=== PATIENT | female | born 1980 | race Caucasian/White ===

== ENCOUNTER 2020-11-19 16:22 | Emergency (ER) | payer MEDICARE, MEDICAID, SELFPAY ==
[2020-11-19 16:30] VITALS: BP 149/96; PULSE 57; RESP 16; TEMP 37.2; O2SAT 100
--- NOTE | 2020-11-19 17:11 | ED.FEMALEGU ---
HPI - Female Genitourinary General Chief complaint: Urogenital-Female Stated complaint: PAINFUL URINATION/LOW BACK PAIN Source: patient and RN notes reviewed Limitations: no limitations History of Present Illness HPI Narrative: The patient, who has history of high functioning autism and on several meds, presents with back pain. Patient and guardian states she lives nearly independently, and has about half week history of urinary frequency, urgency and dysuria. This is associated with mild right-sided back pain, that radiates slightly to her right thigh. No fever, hematuria, abdominal pain, V/D, numbness/weakness, radiation below the knee, injury. Symptoms are mild, worse with micturition or activity. Related Data Home Medications Medication Instructions Recorded Confirmed metoprolol succinate 100 mg 50 mg PO BID tablet 09/19/19 11/19/20 tablet,extended release 24 hr metoprolol succinate 25 mg 25 mg PO BID 09/19/19 11/19/20 tablet,extended release 24 hr hydralazine 25 mg PO BID 11/19/20 11/19/20 Allergies Allergy/AdvReac Type Severity Reaction Status Date / Time No Known Allergies Allergy Unverified 11/19/20 16:28 Review of Systems Review of Systems: Narrative: General/Constitutional: No weight loss- has wt gain,fever Eyes: N0: Redness,discharge Ears/Nose/Throat: No: Epistaxis,ear discharge Respiratory: Denies: Hemoptysis Gastrointestinal: No Vomiting, Bleeding-rectal Skin: No Lumps, eruption ; COMMENTS has painful first metatarsal on flexor aspect. Neurologic: No Focal Weakness,Sz Hematologic: Denies: Petechiae/Purpura Psychiatric: No: Suicida ideationl All Other Systems: Reviewed and Negative PMFSH Past Medical History Medical History (Updated 11/19/20 @ 17:16 by Gus Aguero MD) Anemia of chronic disease Autism Congenital cystic kidney disease Essential (primary) hypertension Hyperparathyroidism due to renal insufficiency Rhinosinusitis Stage 2 chronic kidney disease Family History Family History (Updated 04/26/17 @ 15:37 by DOCTOR UNKNOWN) Other Family history of congestive heart failure Social History Social History Smoking status: Never smoker Alcohol intake: never Comments At time of signature, agree with nursing past medical, surgical, social and family history. There is no relevant family history pertinent to the presenting complaint Exam Narrative: Exam Narrative: General Appearance: Well appearing, Well nourished EYE: PERRLA, Conjunctiva clear Ears: External ear normal Nose: Normal nose Mouth/Throat: Normal appearing, Normal lips Neck: Supple Respiratory: Airway patent Abdomen: Soft, NT, no CVAT Musculoskeletal: Normal strength (no footdrop, 5/5 : EH L-FHL, gastroc-AT, no saddle weakness) Spine/Back: Paraspinal muscle tender (with mild decreased range of motion; rightt posterior superior iliac crest) Skin: Normal color Neurological: A&O x3, CN II-XII intact, Normal reflexes (symmetric, 2+ KJ, trace AJ) Psychiatric: Normal mood Course Vital Signs Vital signs: Vital Signs Temperature 99.0 F 11/19/20 16:30 Pulse Rate 57 L 11/19/20 16:30 Respiratory Rate 16 11/19/20 16:30 Blood Pressure 149/96 H 11/19/20 16:30 Pulse Oximetry 100 11/19/20 16:30 Temperature 99.0 F 11/19/20 16:30 Pulse Rate 57 L 11/19/20 16:30 Respiratory Rate 16 11/19/20 16:30 Blood Pressure 149/96 H 11/19/20 16:30 Pulse Oximetry 100 11/19/20 16:30 MDM - Female Genitourinary Lab Data Labs: Urine Glucose Negative Reference Range: Negative Urine Bilirubin Negative Reference Range: Negative Urine Ketone Negative Reference Range: Negative Urine Specific [place] 1.025 Reference Range:1.0
== END 2020-11-19 17:30 | disposition home or self-care (01) ==
PROVIDERS: Emergency Provider Emergency Medicine; PCP Nurse Practitioner Family
DX: R30.0 Dysuria (principal); M54.5 Low back pain; F84.0 Autistic disorder; Q61.9 Cystic kidney disease, unspecified; I12.9 Hypertensive chronic kidney disease with stage 1 through stage 4 chronic kidney disease, or unspecified chronic kidney disease; N18.2 Chronic kidney disease, stage 2 (mild); N25.81 Secondary hyperparathyroidism of renal origin
CPT/HCPCS: 81003; 87086; 99213; G0463

== ENCOUNTER 2021-06-07 15:51 | Outpatient (CLI) | payer MEDICARE, MEDICAID, SELFPAY ==
[2021-06-07 16:31] LABS: Basophils Absolute Auto 0.1 K/mm3 (0.0-0.1); Eosinophils Absolute Auto 0.2 K/mm3 (0-0.3); Eosinophils Percent Auto 2.3 % (0-4.4); Hematocrit 42.5 % (37.0-47.0); Hemoglobin 13.5 g/dL (12.0-15.0); Immature Granulocyte Absolute 0.03 K/mm3 (0.00-0.031); Immature Granulocyte Percent A 0.4 % (0-0.5); Lymphocytes Absolute Auto 1.88 K/mm3 (0.9-3.2); Lymphocytes Percent Auto 26.8 % (18.3-44.2); Mean Corpuscular HGB Conc 31.8 g/dl (32-36); Mean Corpuscular Hemoglobin 29.7 pg (26-34); Mean Corpuscular Volume 93.4 fl (80-100); Mean Platelet Volume 10.3 fl (7.4-10.4); Monocytes Absolute Auto 0.7 K/mm3 (0.1-0.6); Neutrophils Absolute Auto 4.2 K/mm3 (1.3-6.7); Neutrophils Percent Auto 59.5 % (45.5-73.1); Platelet Count Result 233 k/mm3 (150-375); Red Blood Count 4.55 M/mm3 (4.2-5.4); Red Cell Distribution Width 12.2 % (11.5-14.5)
[2021-06-07 16:44] LABS: Add Urine Microscopic? YES; Appearance Urine Cloudy (Clear); Bacteria Urine Trace /hpf; Bilirubin Urine Negative (Negative); Blood Urine Negative (Negative); Color Urine Yellow (Yellow); Glucose Urine UA Negative (Negative); Ketones Urine Negative (Negative); Leukocyte Esterase Ur Trace LEU/UL (Negative); Mucus Urine Rare /lpf; Nitrate Urine Negative (Negative); Protein Urine Negative (Negative); RBC Urine 0-2 /hpf (0-2); Specific Grav Ur 1.011 (1.001-1.035); Squamous Epithelial Cell Urine Many /hpf (Few); Urobilinogen Urine Negative mg/dL (<2.0); WBC Urine 0-3 /hpf
[2021-06-07 18:04] LABS: Creatinine Urine 84.7 mg/dL; Total Protein Urine Random 12 mg/dL; Ur Ttl Prot Creatinine Ratio 0.14 mg/mg (0-0.20)
[2021-06-07 19:42] LABS: Alanine Aminotransferase 23 U/L (4-35); Albumin Level 4.2 g/dL (3.5-5.1); Alkaline Phosphatase 68 U/L (38-126); Anion Gap 8 mmol/L (8-16); Aspartate Amino Transferase 29 U/L (14-36); Bilirubin,Total 0.4 mg/dL (0.2-1.3); Blood Urea Nitrogen 18 mg/dL (7-17); Calcium 9.5 mg/dL (8.4-10.2); Carbon Dioxide 27 mmol/L (22-30); Chloride 104 mmol/L (98-107); Estimated Glomerular Filt Rate 56; Glucose 113 mg/dL (65-110); Phosphorus 3.8 mg/dL (2.5-4.5); Potassium 4.3 mmol/L (3.4-5.0); Sodium 139 mmol/L (137-145); Uric Acid 5.9 mg/dL (2.5-7.5)
[2021-06-07 19:53] LABS: Parathyroid Intact 70.3 pg/mL (7.5-53.5)
== END 2021-06-07 15:52 | disposition home or self-care (01) ==
LOC: ANHLAB 15:54
PROVIDERS: PCP Nurse Practitioner Family; Visit Provider Internal Medicine Nephrology
DX: I12.9 Hypertensive chronic kidney disease with stage 1 through stage 4 chronic kidney disease, or unspecified chronic kidney disease (principal); N18.2 Chronic kidney disease, stage 2 (mild); Q61.9 Cystic kidney disease, unspecified; N25.81 Secondary hyperparathyroidism of renal origin; D63.8 Anemia in other chronic diseases classified elsewhere; F84.0 Autistic disorder; F41.9 Anxiety disorder, unspecified; L70.9 Acne, unspecified; R51.9 Headache, unspecified
CPT/HCPCS: 36415; 80053; 81001; 82570; 83970; 84100; 84156; 84550; 85025

== ENCOUNTER 2021-12-16 07:28 | Outpatient (CLI) | payer MEDICARE, MEDICAID, SELFPAY ==
[2021-12-16 08:03] LABS: Basophils Absolute Auto 0.1 K/mm3 (0.0-0.1); Basophils Percent Auto 0.9 % (0.2-1.2); Eosinophils Absolute Auto 0.2 K/mm3 (0-0.3); Hematocrit 42.8 % (37.0-47.0); Hemoglobin 13.5 g/dL (12.0-15.0); Immature Granulocyte Absolute 0.04 K/mm3 (0.00-0.031); Immature Granulocyte Percent A 0.6 % (0-0.5); Lymphocytes Absolute Auto 1.41 K/mm3 (0.9-3.2); Lymphocytes Percent Auto 22.1 % (18.3-44.2); Mean Corpuscular HGB Conc 31.5 g/dl (32-36); Mean Corpuscular Hemoglobin 29.5 pg (26-34); Mean Corpuscular Volume 93.7 fl (80-100); Mean Platelet Volume 10.1 fl (7.4-10.4); Monocytes Absolute Auto 0.6 K/mm3 (0.1-0.6); Neutrophils Percent Auto 63.4 % (45.5-73.1); Platelet Count Result 231 k/mm3 (150-375); Red Blood Count 4.57 M/mm3 (4.2-5.4); Red Cell Distribution Width 12.3 % (11.5-14.5); White Blood Count 6.4 K/mm3 (4.5-10.0)
[2021-12-16 08:15] LABS: Hemoglobin A1C 5.1 % (<5.7)
[2021-12-16 08:33] LABS: Alanine Aminotransferase 22 U/L (4-35); Albumin Level 4.1 g/dL (3.5-5.1); Alkaline Phosphatase 73 U/L (38-126); Anion Gap 3 mmol/L (8-16); Aspartate Amino Transferase 30 U/L (14-36); Bilirubin,Total 0.7 mg/dL (0.2-1.3); Blood Urea Nitrogen 26 mg/dL (7-17); Carbon Dioxide 23 mmol/L (22-30); Chloride 107 mmol/L (98-107); Cholesterol 151 mg/dL (0-200); Estimated Glomerular Filt Rate 50; Glucose 95 mg/dL (65-110); HDL Direct 43 mg/dL; Phosphorus 3.9 mg/dL (2.5-4.5); Potassium 5.1 mmol/L (3.4-5.0); Sodium 133 mmol/L (137-145); Triglycerides 62 mg/dL (<150); Uric Acid 5.9 mg/dL (2.5-7.5)
[2021-12-16 08:44] LABS: LDL Cholesterol Direct 69 mg/dL
[2021-12-16 10:10] LABS: Vitamin D 25 Hydroxy 59.4 ng/mL
== END 2021-12-16 07:29 | disposition home or self-care (01) ==
PROVIDERS: PCP Nurse Practitioner Family; Visit Provider Internal Medicine Nephrology
DX: Q61.9 Cystic kidney disease, unspecified (principal); N18.2 Chronic kidney disease, stage 2 (mild); I10 Essential (primary) hypertension; N25.81 Secondary hyperparathyroidism of renal origin; D63.8 Anemia in other chronic diseases classified elsewhere; L70.9 Acne, unspecified; R51.0 Headache with orthostatic component, not elsewhere classified; F84.0 Autistic disorder
CPT/HCPCS: 36415; 80053; 80061; 82306; 83036; 83970; 84100; 84550; 85025

== ENCOUNTER 2022-11-30 09:31 | Outpatient (CLI) | payer MEDICARE, MEDICAID, SELFPAY ==
[2022-11-30 10:15] LABS: Total Protein Urine Random 13 mg/dL
[2022-11-30 10:16] LABS: Appearance Urine Clear (Clear); Bacteria Urine None Seen /hpf; Bilirubin Urine Negative (Negative); Blood Urine 1+ (Negative); Color Urine Yellow (Yellow); Glucose Urine UA Negative (Negative); Ketones Urine Negative (Negative); Leukocyte Esterase Ur 1+ LEU/UL (NEGATIVE); Nitrate Urine Negative (Negative); Non Pathogenic Casts 0-2; Protein Urine Negative (Negative); Specific Grav Ur 1.006 (1.001-1.035); Squamous Epithelial Cell Urine Occasional /hpf (Few); Urobilinogen Urine 0.2 mg/dL (<2.0); pH Urine 5.5 (5.0-9.0)
[2022-11-30 10:28] LABS: Add Urine Microscopic? YES
[2022-11-30 10:48] LABS: Basophils Absolute Auto 0.1 K/mm3 (0.0-0.1); Basophils Percent Auto 0.9 % (0.2-1.2); Eosinophils Absolute Auto 0.2 K/mm3 (0-0.3); Eosinophils Percent Auto 2.4 % (0-4.4); Hematocrit 42.3 % (37.0-47.0); Hemoglobin 13.4 g/dL (12.0-15.0); Immature Granulocyte Absolute 0.05 K/mm3 (0.00-0.031); Immature Granulocyte Percent A 0.8 % (0-0.5); Lymphocytes Absolute Auto 1.39 K/mm3 (0.9-3.2); Mean Corpuscular HGB Conc 31.7 g/dl (32-36); Mean Corpuscular Hemoglobin 29.9 pg (26-34); Mean Corpuscular Volume 94.4 fl (80-100); Mean Platelet Volume 10.6 fl (7.4-10.4); Monocytes Absolute Auto 0.6 K/mm3 (0.1-0.6); Monocytes Percent Auto 9.2 % (2.6-8.5); Neutrophils Absolute Auto 4.1 K/mm3 (1.3-6.7); Neutrophils Percent Auto 64.7 % (45.5-73.1); Platelet Count Result 205 k/mm3 (150-375); Red Blood Count 4.48 M/mm3 (4.2-5.4); Red Cell Distribution Width 12.7 % (11.5-14.5); White Blood Count 6.3 K/mm3 (4.5-10.0)
[2022-11-30 10:57] LABS: Alanine Aminotransferase 23 U/L (6-35); Albumin Level 4.2 g/dL (3.5-5.1); Alkaline Phosphatase 71 U/L (38-126); Anion Gap 4 mmol/L (8-16); Aspartate Amino Transferase 25 U/L (14-36); Bilirubin,Total 0.6 mg/dL (0.2-1.3); Blood Urea Nitrogen 16 mg/dL (7-17); Calcium 8.9 mg/dL (8.4-10.2); Carbon Dioxide 26 mmol/L (22-30); Chloride 101 mmol/L (98-107); Estimated Glomerular Filt Rate 55; Glucose 93 mg/dL (65-110); Potassium 4.7 mmol/L (3.4-5.0); Sodium 131 mmol/L (137-145)
[2022-11-30 11:37] LABS: Creatinine Urine 49.9 mg/dL; Ur Ttl Prot Creatinine Ratio 0.26 mg/mg (0-0.20)
== END 2022-11-30 09:32 | disposition home or self-care (01) ==
LOC: ANHLAB 09:37
PROVIDERS: PCP Nurse Practitioner Family; Visit Provider Internal Medicine Nephrology
DX: N18.2 Chronic kidney disease, stage 2 (mild) (principal); D63.1 Anemia in chronic kidney disease
CPT/HCPCS: 36415; 80053; 81001; 82570; 84156; 85025

== ENCOUNTER 2023-05-24 17:13 | Outpatient (NON) | payer MEDICARE, MEDICAID, SELFPAY | END 2023-05-24 17:14 | disposition home or self-care (01) | LOC: ANHLAB 17:14 | PROVIDERS: PCP Nurse Practitioner Family; Visit Provider Nurse Practitioner Family | DX: R30.0 Dysuria (principal) | CPT/HCPCS: 87086; 87088 ==

== ENCOUNTER 2023-06-27 15:18 | Emergency (ER) | payer MEDICARE, MEDICAID, SELFPAY ==
--- NOTE | ~2023-06-27 | XR_ITS ---
EXAMINATION: XR chest 2V DATE: 06/27/2023 17:58 INDICATION: Pulmonary status TECHNIQUE: PA and lateral views of the chest are obtained. COMPARISON: None available FINDINGS: The lungs are free of acute opacities. No pleural effusion or pneumothorax. The cardiomedia stinal silhouette is normal. There is mild thoracic spondylosis. IMPRESSION: 1. No acute cardiopulmonary abnormality. Reviewed, dictated and finalized at location F.
--- NOTE | ~2023-06-27 | CT_ITS ---
EXAMINATION: CT brain wo con INDICATION: Headache COMPARISON: None TECHNIQUE: Standard unenhanced head CT. The dose-length product (DLP) was 605.33 mGy-cm. The mA was a djusted according to patient size. Iterative reconstruction technique was employed. FINDINGS: No intracranial hemorrhage, acute infarction, or abnormal mass lesion. The ventricles are n ormal. No abnormal mass effect or midline shift. The lucas-white matter differentiation is normal. The basal cisterns are patent. There is dense calcification of the choroid plexus. The orbits are normal . The paranasal sinuses, mastoids and calvarium are normal. IMPRESSION: 1. No acute intracranial abnormality. Reviewed, dictated and finalized at location F.
[2023-06-27 15:25] VITALS: BP 186/103; PULSE 67; RESP 16; TEMP 36.4; O2SAT 98
[2023-06-27 17:03] VITALS: PULSE 66; RESP 22; O2SAT 99
--- NOTE | 2023-06-27 17:38 | ECG_ITS ---
Measurements Intervals [place] Rate: 54 P: 14 AL: 156 QRS: 2 QRSD: 102 T: 25 QT: 411 QTc: 392 Interpretive Statements SINUS BRADYCARDIA VOLTAGE CRITERIA FOR LVH [MEETS CRITERIA IN ONE OF: R(aVL), S(V1), R(V5), R(V5/V6)+S(V1)] ABNORMAL ECG NO PREVIOUS ECG AVAILABLE FOR COMPARISON Electronically Signed On 06-28-2023 10:26:55 CDT by Gus Leary M.D.
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
[2023-06-27] MEDS: ALPRAZolam (*CRX) 0.5 MG TABLET PO (18:09)
[2023-06-27] MEDS: SODIUM CHLORIDE 0.9% IV 1,000 ML 999 ML IV CONT (18:37)
[2023-06-27 18:42] LABS: Basophils Absolute Auto 0.1 K/mm3 (0.0-0.1); Basophils Percent Auto 0.6 % (0.2-1.2); Eosinophils Absolute Auto 0.1 K/mm3 (0-0.3); Eosinophils Percent Auto 1.2 % (0-4.4); Hematocrit 42.9 % (37.0-47.0); Hemoglobin 13.7 g/dL (12.0-15.0); Immature Granulocyte Absolute 0.03 K/mm3 (0.00-0.031); Immature Granulocyte Percent A 0.4 % (0-0.5); Lymphocytes Absolute Auto 1.56 K/mm3 (0.9-3.2); Lymphocytes Percent Auto 20.2 % (18.3-44.2); Mean Corpuscular HGB Conc 31.9 g/dl (32-36); Mean Corpuscular Volume 93.9 fl (80-100); Mean Platelet Volume 10.1 fl (7.4-10.4); Monocytes Absolute Auto 0.5 K/mm3 (0.1-0.6); Monocytes Percent Auto 6.6 % (2.6-8.5); Neutrophils Absolute Auto 5.5 K/mm3 (1.3-6.7); Platelet Count Result 245 k/mm3 (150-375); Red Blood Count 4.57 M/mm3 (4.2-5.4); Red Cell Distribution Width 12.3 % (11.5-14.5); White Blood Count 7.7 K/mm3 (4.5-10.0)
[2023-06-27 18:52] LABS: Alanine Aminotransferase 30 U/L (6-35); Albumin Level 4.5 g/dL (3.5-5.1); Alkaline Phosphatase 68 U/L (38-126); Anion Gap 7 mmol/L (8-16); Aspartate Amino Transferase 33 U/L (14-36); Bilirubin,Total 0.5 mg/dL (0.2-1.3); Blood Urea Nitrogen 24 mg/dL (7-17); Calcium 9.8 mg/dL (8.4-10.2); Carbon Dioxide 25 mmol/L (22-30); Chloride 107 mmol/L (98-107); Creatine Kinase 234 U/L (30-135); Estimated CRCL calculation 54 ml/min; Estimated Glomerular Filt Rate 50; Glucose 99 mg/dL (65-110); Partial Thromboplastin Time 27.8 SECONDS (22.3-36.8); Potassium 4.8 mmol/L (3.4-5.0); Sodium 139 mmol/L (137-145)
[2023-06-27 18:53] LABS: Lactic Acid Reflex 1.1 mmol/L (0.7-2.0)
[2023-06-27 18:56] LABS: Acetaminophen < 10 ug/mL (10-30); Ethanol < 10 mg/dL (<10); Salicylate < 1.0 mg/dL (2-20)
[2023-06-27 19:04] LABS: Troponin I < 0.012 ng/mL (0.000-0.034)
[2023-06-27 19:07] LABS: Appearance Urine Clear (Clear); Bacteria Urine None Seen /hpf; Bilirubin Urine Negative (Negative); Blood Urine Trace (Negative); Color Urine Yellow (Yellow); Glucose Urine UA Negative (Negative); Ketones Urine Negative (Negative); Leukocyte Esterase Ur Negative LEU/UL (Negative); Nitrate Urine Negative (Negative); Non Pathogenic Casts 0-2; Protein Urine Negative (Negative); RBC Urine 0-2 /hpf (0-2); Specific Grav Ur 1.007 (1.001-1.035); Squamous Epithelial Cell Urine None seen /hpf (Few); Urobilinogen Urine 0.2 mg/dL (<2.0); WBC Urine 0-5 /hpf; pH Urine 5.5 (5.0-9.0)
--- NOTE | 2023-06-27 19:16 | PC.NURSE ---
care and report given to MARTHA Larry. all questions answered.
[2023-06-27 19:17] LABS: Influenza A QL RT-PCR Negative (Negative); Influenza B QL RT-PCR Negative (Negative); SARS-CoV-2 RNA PCR Negative (Negative)
--- NOTE | 2023-06-27 19:18 | PC.NURSE ---
Assumed care of pt from MARTHA Erazo at this time.
[2023-06-27 19:22] LABS: Amphetamine Screen Urine Negative (Negative); Barbiturate Screen Urine Negative (Negative); Benzodiazepines Screen Urine Negative (Negative); Cannabinoid Screen Urine Negative (Negative); Cocaine Screen Urine Negative (Negative); Methadone Screen Urine Negative (Negative); Opiate Screen Urine Negative (Negative); Phencyclidine Screen Urine Negative (Negative)
[2023-06-27 19:36] LABS: Add Urine Microscopic? YES
[2023-06-27 19:47] VITALS: BP 162/104; PULSE 65; RESP 22; O2SAT 100
--- NOTE | 2023-06-27 19:50 | PC.NURSE ---
Pts mother/caregiver asked if she could give pt night BP medications. This RN asked EDPHilda, who said that would be fine. This RN took pt water and updated VS.
[2023-06-27 19:59] LABS: Free T4 Free Thyroxine 1.03 ng/mL (0.78-2.19)
--- NOTE | 2023-06-27 20:17 | PC.NURSE ---
Pt attempted to obtain urine sample for bedside test and missed hat. Pt given water and will try again.
== END 2023-06-27 21:06 | disposition home or self-care (01) ==
PROVIDERS: Emergency Provider Physician Assistant; PCP Nurse Practitioner Family
DX: F41.9 Anxiety disorder, unspecified (principal); F22 Delusional disorders; Z11.52 Encounter for screening for COVID-19; F84.0 Autistic disorder; I12.9 Hypertensive chronic kidney disease with stage 1 through stage 4 chronic kidney disease, or unspecified chronic kidney disease; N18.2 Chronic kidney disease, stage 2 (mild); Z79.899 Other long term (current) drug therapy; D63.8 Anemia in other chronic diseases classified elsewhere; N25.81 Secondary hyperparathyroidism of renal origin; Q61.9 Cystic kidney disease, unspecified; R00.1 Bradycardia, unspecified; R10.819 Abdominal tenderness, unspecified site
CPT/HCPCS: 36415; 70450; 71046; 80053; 80307; 81001; 81025; 82550; 83605; 84439; 84443; 84480; 84484; 85025; 85610; 85730; 87636; 93005; 96360; 96361; 99284; A9270; J7030

== ENCOUNTER 2023-09-10 10:04 | Emergency (ER) | payer MEDICARE, MEDICAID, SELFPAY ==
--- NOTE | ~2023-09-10 | XR_ITS ---
XR chest 2V DATE: 09/10/2023 11:51 INDICATION: Cough, shortness of breath TECHNIQUE: PA and lateral views COMPARISON: None FINDINGS: Mild cardiomegaly. No hilar or mediastinal enlargement. No pulmonary infiltrate or consolid ation, pleural the effusion or pulmonary vascular congestion or pneumothorax is detected. IMPRESSION: Mild cardiomegaly. No active pulmonary disease Reviewed, dictated and finalized at location A. SERVICES REPRESENTATIVE
[2023-09-10 10:29] VITALS: BP 129/88; PULSE 58; RESP 16; TEMP 36.2; O2SAT 100
--- NOTE | 2023-09-10 11:45 | ED.GENADULT ---
HPI - General Adult General Chief complaint: Upper Respiratory Infection Stated complaint: Sore Throat;Fever;SOB;Chest pain Source: patient and family Mode of arrival: ambulatory Limitations: no limitations History of Present Illness HPI narrative: Patient presents for evaluation of sick symptoms for last 3 days. Symptoms include fever, sore throat and cough. No chills, nausea, vomiting, diarrhea, shortness of breath. She has not been taking any medication to assist with her symptoms. She does not smoke. Related Data Home Medications Medication Instructions Recorded Confirmed metoprolol succinate 100 mg 50 mg PO BID 09/19/19 09/10/23 tablet,extended release 24 hr metoprolol succinate 25 mg 25 mg PO BID 09/19/19 09/10/23 tablet,extended release 24 hr hydralazine 25 mg tablet 25 mg PO BID 11/19/20 09/10/23 escitalopram oxalate 5 mg tablet 5 mg PO DAILY 09/10/23 09/10/23 Allergies Allergy/AdvReac Type Severity Reaction Status Date / Time No Known Allergies Allergy Verified 09/10/23 11:13 Review of Systems Review of Systems: CONSTITUTIONAL: Reports fever. Denies chills, or sweats. EYES: Denies visual changes, redness, or discharge. ENT: Reports sore throat. Denies rhinorrhea and otalgia CARDIOVASCULAR: Denies chest pain, palpitations, or edema. RESPIRATORY: Reports cough. Denies shortness of breath. GASTROINTESTINAL: Denies abdominal pain, nausea, vomiting, or diarrhea. GENITOURINARY: Denies dysuria or hematuria. SKIN: Denies rash or itching. MUSCULOSKELETAL: Denies back pain, joint pain, or myalgia. NEUROLOGIC: Denies headache, numbness, dizziness, or weakness. PSYCHIATRIC: Denies anxiety or depression. [facility] Past Medical History Medical History Anemia of chronic disease Autism Bacterial vaginosis Congenital cystic kidney disease Essential (primary) hypertension Hyperparathyroidism due to renal insufficiency Psychiatric disorder Rhinosinusitis Stage 2 chronic kidney disease Yeast infection Surgical History Surgical History No pertinent past surgical history Family History Family History Other Family history of congestive heart failure Social History Social History Social History: Lives at home with parents. Caffeine- Smoking status: Never smoker Alcohol intake: never Substance use: never Substance use type: does not use Living arrangements: with family Occupation/Education: occupation Gender identity (if verbalized by the patient): Female Exam Narrative: GENERAL: Well-appearing, well-nourished, and in no acute distress. HEAD: Normocephalic, atraumatic. EYES: PERRLA and EOMI. ENT: Nares clear, no rhinorrhea or epistaxis. Mucous membranes moist. Oropharynx without tonsillar hypertrophy exudate or other lesions. Bilateral TMs pearly lucas nonbulging NECK: Supple. No adenopathy or masses. No carotid bruits or JVD CHEST: Clear to auscultation. No respiratory distress. No wheezes rales or rhonchi HEART: Regular rate and rhythm. No murmur heard. Normal peripheral pulses. ABDOMEN: Soft, nontender, nondistended, normal active bowel sounds. EXTREMITIES: Normal range of motion. No edema. SKIN: Warm, dry, no rash. NEURO: No focal deficits. Alert and oriented x3. PSYCH: Normal mood and affect. Course Course Emergency Course: This is a 43-year-old female who presented for evaluation of sick symptoms. Her strep, influenza, and COVID were all negative. Chest x-ray normal. Through shared decision making opted to proceed with amoxicillin. Increase hydration. [id number] agents for symptom management. Follow up with primary provider. Go to the ER for worsening symptoms. Mother in agreement with plan of care.
== END 2023-09-10 12:20 | disposition home or self-care (01) ==
PROVIDERS: Emergency Provider Nurse Practitioner; PCP Nurse Practitioner Family
DX: J02.9 Acute pharyngitis, unspecified (principal); I12.9 Hypertensive chronic kidney disease with stage 1 through stage 4 chronic kidney disease, or unspecified chronic kidney disease; N18.2 Chronic kidney disease, stage 2 (mild); Z20.822 Contact with and (suspected) exposure to COVID-19
CPT/HCPCS: 71046; 87081; 87426; 87804; 87880; 99213; C9803; G0463

== ENCOUNTER 2024-02-16 08:38 | Outpatient (CLI) | payer MEDICARE, MEDICAID, SELFPAY ==
[2024-02-16 14:19] LABS: Appearance Urine Clear (Clear); Bilirubin Urine Negative (Negative); Blood Urine Negative (Negative); Color Urine Yellow (Yellow); Glucose Urine UA Negative (Negative); Ketones Urine Negative (Negative); Leukocyte Esterase Ur Negative LEU/UL (Negative); Nitrate Urine Negative (Negative); Protein Urine Negative (Negative); Specific Grav Ur 1.005 (1.001-1.035); Urobilinogen Urine 0.2 mg/dL (<2.0); pH Urine 5.5 (5.0-9.0)
[2024-02-16 15:21] LABS: Add Urine Microscopic? NO
[2024-02-16 15:40] LABS: Albumin Level 4.3 g/dL (3.5-5.1); Anion Gap 9 mmol/L (4-12); Blood Urea Nitrogen 20 mg/dL (7-17); Calcium 9.3 mg/dL (8.4-10.2); Carbon Dioxide 22 mmol/L (22-30); Chloride 106 mmol/L (98-107); Estimated Glomerular Filt Rate 50; Glucose 74 mg/dL (65-110); Phosphorus 3.3 mg/dL (2.5-4.5); Potassium 4.7 mmol/L (3.4-5.0); Sodium 137 mmol/L (137-145)
[2024-02-16 16:04] LABS: Creatinine Urine 39.2 mg/dL; Total Protein Urine Random 13 mg/dL; Ur Ttl Prot Creatinine Ratio 0.33 mg/mg (0-0.20)
== END 2024-02-16 08:39 | disposition home or self-care (01) ==
PROVIDERS: PCP Nurse Practitioner Family
DX: N18.2 Chronic kidney disease, stage 2 (mild) (principal)
CPT/HCPCS: 36415; 80069; 81003; 82570; 83970; 84156

== ENCOUNTER 2024-02-19 08:04 | Outpatient (CLI) | payer MEDICARE, MEDICAID, SELFPAY ==
--- NOTE | ~2024-02-19 | US_ITS ---
EXAMINATION: US retroperitoneal comp DATE: 02/19/2024 08:42 INDICATION: Stage II chronic kidney disease. TECHNIQUE: Multiple ultrasound grayscale images of the kidneys were obtained. COMPARISON: None. FINDINGS: The right kidney measures 9.0 x 3.6 x 4.7 cm. The left kidney measures 9.3 x 4.3 x 4.9 cm. The kidney s demonstrate normal parenchymal echogenicity. There is no hydronephrosis. The bladder is normal. The re are gallstones in the gallbladder, which is normal in size. IMPRESSION: 1. Normal kidneys. No hydronephrosis. 2. Cholelithiasis. Reviewed, dictated and finalized at location A.
== END 2024-02-19 08:05 ==
PROVIDERS: PCP Nurse Practitioner Family
DX: K80.20 Calculus of gallbladder without cholecystitis without obstruction (principal); N18.2 Chronic kidney disease, stage 2 (mild)
CPT/HCPCS: 76770

== ENCOUNTER 2024-05-13 10:08 | Outpatient (CLI) | payer MEDICARE, MEDICAID, SELFPAY ==
[2024-05-13 10:56] LABS: Albumin Level 4.3 g/dL (3.5-5.1); Anion Gap 10 mmol/L (4-12); Blood Urea Nitrogen 31 mg/dL (7-17); Calcium 9.4 mg/dL (8.4-10.2); Carbon Dioxide 23 mmol/L (22-30); Chloride 105 mmol/L (98-107); Estimated Glomerular Filt Rate 45; Glucose 80 mg/dL (65-110); Phosphorus 3.8 mg/dL (2.5-4.5); Potassium 4.9 mmol/L (3.4-5.0); Sodium 138 mmol/L (137-145)
== END 2024-05-13 10:09 | disposition home or self-care (01) ==
PROVIDERS: PCP Nurse Practitioner Family
DX: N18.2 Chronic kidney disease, stage 2 (mild) (principal)
CPT/HCPCS: 36415; 80069

== ENCOUNTER 2024-06-17 08:56 | Emergency (ER) | payer MEDICARE, MEDICAID, SELFPAY ==
--- NOTE | ~2024-06-17 | XR_ITS ---
XR chest 2V Ordering provider: Tavares Couch APRN History: 43 years Female with . cough sob for 1 week . Comparison: 09/10/2023 FINDINGS: MEDIASTINUM: The cardiac silhouette is not enlarged. LUNGS: No infiltrates, effusions or pneumothorax. OTHER: No free air under the diaphragm. IMPRESSION: No acute cardiopulmonary pathology. Reviewed, dictated and finalized at location A.
--- NOTE | 2024-06-17 09:03 | ED.URI ---
HPI - URI/Sore Throat General Chief Complaint: Ear Stated Complaint: Chest Pain/Ear Pain Time Seen by Provider: 06/17/24 08:58 Source: patient Mode of arrival: ambulatory Limitations: no limitations History of Present Illness HPI Narrative: Alondra is a 43-year-old female patient presenting to the clinic today with complaints of chest congestion, shortness of breath, cough, runny nose, and left ear pain. She reports symptoms have been going on for 1 week. Cough is nonproductive. Denies any fever or chills. MD elicited complaint: cough, sore throat, nasal congestion and other (Shortness of breath) Related Data Home Medications Medication Instructions Recorded Confirmed metoprolol succinate 100 mg 50 mg PO BID 09/19/19 09/10/23 tablet,extended release 24 hr metoprolol succinate 25 mg 25 mg PO BID 09/19/19 09/10/23 tablet,extended release 24 hr hydralazine 25 mg tablet 25 mg PO BID 11/19/20 09/10/23 escitalopram oxalate 5 mg tablet 5 mg PO DAILY 09/10/23 09/10/23 Allergies Allergy/AdvReac Type Severity Reaction Status Date / Time No Known Allergies Allergy Verified 09/10/23 11:13 Review of Systems Review of Systems: Pertinent positives per HPI. Patient denies any fever, chills, rash, headache, visual changes, dizziness, chest pain, palpitations, nausea, vomiting, diarrhea, constipation, abdominal pain, or any urinary issues. [facility] Past Medical History Medical History Anemia of chronic disease Autism Bacterial vaginosis Congenital cystic kidney disease Essential (primary) hypertension Hyperparathyroidism due to renal insufficiency Psychiatric disorder Rhinosinusitis Stage 2 chronic kidney disease Yeast infection Surgical History Surgical History No pertinent past surgical history Family History Family History Other Family history of congestive heart failure Social History Social History Social History: Lives at home with parents. Caffeine- Smoking status: Never smoker Alcohol intake: never Substance use: never Substance use type: does not use Living arrangements: with family Occupation/Education: occupation Gender identity (if verbalized by the patient): Female Comments At the time of my signature, I reviewed and agree with the nursing past medical, surgical, social, and family history. There is no relevant family history pertinent to the patient complaint. Exam Narrative: General: Well-developed, well nourished, in no apparent distress Head: Normocephalic, atraumatic Eyes: Pupils equally round and reactive to light bilaterally, EOM intact, sclera and conjunctive clear, no discharge, lids normal Ears: TMs intact and congested, ear canals clear, no drainage, grossly hearing normal. Nose: Nares patent, clear nasal discharge, mild inflammation, no sinus tenderness. Mouth: Oral pharynx without lesions or masses, good dentition, MMM. Neck: Supple, trachea midline, no enlargement of anterior or posterior cervical nodes, no thyroid masses or goiter palpable. Cardio: Regular rate and rhythm, s1 and s2 normal, no murmur appreciated. Resp: Lung sounds diminished in the bases otherwise clear, no rhonchi, rales, wheezing or rubs Course Course Emergency Course: Portions of this record may have been created with voice recognition software. Level of Care: Express Care Visit Vital Signs Vital signs: Vital signs reviewed MDM - URI/Sore Throat MDM Narrative Medical decision making narrative: At the time of visit patient is resting comfortably on the exam table. Patient appears to be nontoxic. Labs: COVID testing was negative in the clinic today Diagnostics: Chest x-ray was performed and negative for any acute cardiop
[2024-06-17 09:14] VITALS: BP 139/86; PULSE 54; RESP 18; TEMP 36.5; O2SAT 100
[2024-06-17 14:32] LABS: EDCOVIDSCREEN Negative (Negative)
== END 2024-06-17 09:49 | disposition home or self-care (01) ==
PROVIDERS: Emergency Provider Nurse Practitioner Family; PCP Nurse Practitioner Family
DX: J40 Bronchitis, not specified as acute or chronic (principal); J06.9 Acute upper respiratory infection, unspecified; Z20.822 Contact with and (suspected) exposure to COVID-19; F84.0 Autistic disorder; I12.9 Hypertensive chronic kidney disease with stage 1 through stage 4 chronic kidney disease, or unspecified chronic kidney disease; N18.2 Chronic kidney disease, stage 2 (mild); Q61.00 Congenital renal cyst, unspecified; N25.81 Secondary hyperparathyroidism of renal origin
CPT/HCPCS: 71046; 87426; 99213; G0463

== ENCOUNTER 2024-06-28 14:27 | Emergency (ER) | payer MEDICARE, MEDICAID, SELFPAY ==
[2024-06-28 14:36] VITALS: BP 96/73; PULSE 62; RESP 16; TEMP 36.4; O2SAT 100
--- NOTE | 2024-06-28 14:36 | ED.EAR ---
HPI - Ear Problem General Chief complaint: Ear Stated complaint: bilateral ear pain Source: patient Mode of arrival: ambulatory Limitations: no limitations History of Present Illness HPI Narrative: 44 y/o female with hx autism presented with mother for c/o bilateral ear pain and sinus pressure for 3 days. Also reports similar symptoms due to allergies intermittently over the past few months. Denies cough, sob, ear drainage, tinnitus, dizziness, n/v/d/f/c. Taking Mucinex, Lorelei, Flonase. Complaint: ear pain Related Data Home Medications Medication Instructions Recorded Confirmed metoprolol succinate 100 mg 50 mg PO BID 09/19/19 06/28/24 tablet,extended release 24 hr metoprolol succinate 25 mg 25 mg PO BID 09/19/19 06/28/24 tablet,extended release 24 hr hydralazine 25 mg tablet 25 mg PO BID 11/19/20 06/28/24 escitalopram oxalate 5 mg tablet 5 mg PO DAILY 09/10/23 06/28/24 lisinopril 10 mg tablet 10 mg PO DIRECTED 06/28/24 06/28/24 Allergies Allergy/AdvReac Type Severity Reaction Status Date / Time No Known Allergies Allergy Verified 09/10/23 11:13 Review of Systems Review of Systems: CONSTITUTIONAL: Denies malaise, chills, or fever. EYES: Denies visual changes, redness, or discharge. ENT: Denies sore throat. Reports ear pain rhinorrhea, congestion CARDIOVASCULAR: Denies chest pain, palpitations, or edema. RESPIRATORY: Denies cough or dyspnea. GASTROINTESTINAL: Denies abdominal pain, nausea, vomiting, diarrhea SKIN: Denies rash or itching. MUSCULOSKELETAL: Denies myalgia. NEUROLOGIC: Denies headache. All systems reviewed & are unremarkable except as noted in HPI and below PMFSH Past Medical History Medical History Anemia of chronic disease Autism Bacterial vaginosis Congenital cystic kidney disease Essential (primary) hypertension Hyperparathyroidism due to renal insufficiency Psychiatric disorder Rhinosinusitis Stage 2 chronic kidney disease Yeast infection Surgical History Surgical History No pertinent past surgical history Family History Family History Other Family history of congestive heart failure Social History Social History Social History: Lives at home with parents. Caffeine- Smoking status: Never smoker Alcohol intake: never Substance use: never Substance use type: does not use Living arrangements: with family Occupation/Education: occupation Gender identity (if verbalized by the patient): Female Comments At time of signature, agree with nursing past medical, surgical, social and family history. There is no relevant family history pertinent to the presenting complaint Exam Narrative: GENERAL: Well-appearing EYES: conjunctivae clear ENT: Nares clear. Mucous membranes moist. TMs pearly lucas with normal light reflex bilaterally; no tragal tenderness. Oropharynx not erythematous without lesions. NECK: Supple. No lymphadenopathy CHEST: Clear to auscultation, breath sounds equal. No respiratory distress, speaks in full sentences. HEART: Regular rate and rhythm. No murmur heard. SKIN: Warm, dry, no rash. NEURO: Alert and oriented x3. Course Course Emergency Course: Patient is aware of diagnosis, understands and agrees to treatment plan. Anticipatory guidance given. Patient agrees to follow-up as directed and is aware of reasons to seek care at the emergency department. Portions of this record may have been created with voice recognition software Level of Care: Express Care Visit Vital Signs Vital signs: Vital Signs Temperature 97.5 F L 06/28/24 14:36 Pulse Rate 62 06/28/24 14:36 Respiratory Rate 16 06/28/24 14:36 Blood Pressure 96/73 L 06/28/24 14:36 Pulse Oximetry 100 06/28/24 14:36 Temperatur
== END 2024-06-28 14:58 | disposition home or self-care (01) ==
PROVIDERS: Emergency Provider Nurse Practitioner Family; PCP Nurse Practitioner Family
DX: H92.03 Otalgia, bilateral (principal); F84.0 Autistic disorder; I12.9 Hypertensive chronic kidney disease with stage 1 through stage 4 chronic kidney disease, or unspecified chronic kidney disease; N18.2 Chronic kidney disease, stage 2 (mild); Q61.9 Cystic kidney disease, unspecified; N25.81 Secondary hyperparathyroidism of renal origin
CPT/HCPCS: 99211; G0463

== ENCOUNTER 2024-09-12 11:25 | Emergency (ER) | payer MEDICARE, MEDICAID, SELFPAY ==
[2024-09-12 11:57] VITALS: BP 107/57; PULSE 54; RESP 20; O2SAT 100
--- NOTE | 2024-09-12 12:21 | ED.URI ---
HPI - URI/Sore Throat General Chief Complaint: Upper Respiratory Infection Stated Complaint: Lump on lower rt leg,Chest Congestion, sore throat Time Seen by Provider: 09/12/24 12:20 Source: patient Mode of arrival: ambulatory Limitations: no limitations History of Present Illness HPI Narrative: Alondra is a 44-year-old female patient presenting to the clinic today with multiple complaints with her mother with. Mother reports that she has a lump on her leg that she has had for about 3-4 months. Area is tender to touch and got red and swollen last night however is now gone down. Also concerned about nasal congestion, chest congestion and sore throat that started over the last 2-3 days. No known fever, chills, or body aches. Used her albuterol inhaler this morning and that helped her shortness of breath. MD elicited complaint: sore throat and nasal congestion Related Data Home Medications ?Medication ?Instructions ?Recorded ?Confirmed ?Last Taken ?Type lisinopril 10 mg tablet 10 mg PO DIRECTED 06/28/24 08/26/24 Unknown History chlorthalidone 25 mg tablet 25 mg PO DAILY 08/26/24 08/26/24 Unknown History escitalopram oxalate 5 mg tablet 10 mg PO DAILY 08/26/24 08/26/24 Unknown History metoprolol succinate 100 mg 150 mg PO DAILY 08/26/24 08/26/24 Unknown History tablet,extended release 24 hr albuterol sulfate 90 mcg/actuation inhalation 09/12/24 Unknown History aerosol inhaler norethindrone (contraceptive) 0.35 mg 09/12/24 Unknown History mg tablet (Incassia) Allergies Allergy/AdvReac Type Severity Reaction Status Date / Time metronidazole AdvReac Intermediate delusions Verified 08/28/24 17:00 Review of Systems Review of Systems: Pertinent positives per HPI. Patient denies any fever, chills, rash, headache, visual changes, dizziness, chest pain, palpitations, nausea, vomiting, diarrhea, constipation, abdominal pain, or any urinary issues. 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 Caffeine- Smoking status: Never smoker Alcohol intake: never Substance use: never Substance use type: does not use Living arrangements: with family Occupation/Education: occupation Gender identity (if verbalized by the patient): Female Comments At the time of my signature, I reviewed and agree with the nursing past medical, surgical, social, and family history. There is no relevant family history pertinent to the patient complaint. Exam Narrative: General: Well-developed, well nourished, in no apparent distress Head: Normocephalic, atraumatic Eyes: Pupils equally round and reactive to light bilaterally, EOM intact, sclera and conjunctive clear, no discharge, lids normal Ears: TMs intact and clear, ear canals clear, no drainage, grossly hearing normal. Nose: Nares patent, clear nasal discharge, no inflammation, no sinus tenderness. Mouth: Oral pharynx mildly red without lesions or masses, good dentition, MMM. Postnasal drip Neck: Supple, trachea midline, no enlargement of anterior or posterior cervical nodes, no thyroid masses or goiter palpable. Cardio: Regular rate and rhythm, s1 and s2 normal, no murmur appreciated. Resp: Clear to auscultation bilaterally, no rhonchi, rales, wheezing or rubs. Integumentary: [place], warm, and dry, firm mass to the right lower medial anterior leg with tenderness to palpation. No localized redness, swelling, or erythema. Course Course Emergency Course: Portions of this record may have been created with voice recognition software. Level of Care: Express Care Visit Vital Signs Vital signs: Vital Signs Pulse Rate 54 L 09/12/24 11:57 Respiratory Rate 20 09/12/24 11:57 Blood Pressure 107/57 L 09/12/24 11:57 Pulse Oximetry 100 09/12/24 11:57 Pulse Rate 54 L 09/12/24 11:57 Respiratory Rate 20 09/12/24 11:57 Blood Pressure 107/57 L 09/12/24 11:57 Pulse Oximetry 100 09/12/24 11:57 Vital signs reviewed MDM - URI/Sore Throat MDM Narrative Medical decision making narrative: At the time of visit patient is resting comfortably on the exam table. Patient appears to be nontoxic. Plan: I suspect patient likely has a cyst to the right lower lobe leg in the subcutaneous tissue. Also suspect patient has URI/pharyngitis. Supportive measures were discussed with the patient and they voiced understanding discharge instructions and agrees to treatment plan. Return precautions reviewed Differential Diagnosis Differential diagnosis: Likely upper respiratory infection, otitis media, sinusitis, viral infection, bronchitis, influenza, pharyngitis and other (COVID) Discharge Plan Discharge Clinical Impression: Subcutaneous mass of right lower extremity URI (upper respiratory infection) Qualifiers: URI type: unspecified URI Qualified Code(s): J06.9 - Acute upper respiratory infection, unspecified Pharyngitis Qualifiers: Pharyngitis/tonsillitis etiology: unspecified etiology Qualified Code(s): J02.9 - Acute pharyngitis, unspecified Patient Disposition: Home, Self-Care Condition: Stable Instructions: Antibiotic Form, Pharyngitis (ED), Cold Symptoms (ED), Soft Tissue Mass (ED) Additional Instructions: Follow-up with Alta for evaluation of subcutaneous mass of the right lower extremity-may need ultrasound May take Coricidin HBP for cold/flu symptoms Increase fluids and stay well hydrated Tylenol/motrin for pain/fever Flonase and OTC antihistamines as directed Vicks vapor rub to open sinuses Sinus rinses for congestion Cepacol spray, cough drops, throat lozenges, warm tea with honey/lemon, gargle salt water to soothe throat BRAT diet for diarrhea Clear liquids x 24 hours then advance as tolerated for nausea/vomiting Go to the ED if you develop a worsening in your condition- high fever not controlled by Tylenol or Motrin, dehydration, weakness, lethargy, shortness of breath, or chest pain. Follow up with your PCP in 3-5 days if symptoms persist. Patient Language: Slovenian Prescriptions: No Action escitalopram oxalate 5 mg tablet 10 mg PO DAILY lisinopril 10 mg tablet 10 mg PO DIRECTED albuterol sulfate 90 mcg/actuation HFA aerosol inhaler INHALATION norethindrone (contraceptive) [Incassia] 0.35 mg tablet metoprolol succinate 100 mg tablet extended release 24 hr 150 mg PO DAILY chlorthalidone 25 mg tablet 25 mg PO DAILY fluconazole 150 mg tablet 150 mg PO .COMPLEX Qty: 2 0RF Rx Instructions: 150 mg orally 1 tab today, and one tab in 72 hours; clindamycin HCl 300 mg capsule 300 mg PO Q12H Qty: 14 0RF Follow-up/Referrals: Alta Garza NP [Primary Care Provider] - Time of Disposition: 12:24 Quality NIHSS Nursing Documentation ED NIHSS nursing documentation: reviewed/agree
== END 2024-09-12 12:31 | disposition home or self-care (01) ==
PROVIDERS: Emergency Provider Nurse Practitioner Family; PCP Nurse Practitioner Family
DX: R22.41 Localized swelling, mass and lump, right lower limb (principal); J06.9 Acute upper respiratory infection, unspecified; J02.9 Acute pharyngitis, unspecified; F41.8 Other specified anxiety disorders; F84.0 Autistic disorder; N18.2 Chronic kidney disease, stage 2 (mild); I12.9 Hypertensive chronic kidney disease with stage 1 through stage 4 chronic kidney disease, or unspecified chronic kidney disease; D63.1 Anemia in chronic kidney disease
CPT/HCPCS: 99211; G0463

== ENCOUNTER 2024-11-22 13:45 | Outpatient (CLI) | payer MEDICARE, MEDICAID, SELFPAY ==
--- OUTSIDE RECORDS SUMMARY | 2024-11-21 16:21 | XMS_ITS | Encounter Summary ---
Author Organization [facility] Address [address] [place] [address] Care Team Providers Care Mercerizing Range Feeder Name Role Phone Unavailable Primary Care Provider Unavailabl e Encounter Details Date Type Department Care Team (Late st Contact Info) Description 09/15/1999 Outpatient Historical [facility] LASHAUN Viridiana Montez MD NO ADDRESS ON FILE Social History Tobacco Use Types Packs/Day Years Used Date Smoking Tobacco: Never Assessed Comments Unknown Sex and Gender Information Value Date Recorded Sex Assigned at Not on file Legal Sex Female 3:19 AM HOME STAGER Gender Identity Not on file Sexual Orientation Not on file documented as of this encounter Plan of Treatment Not on file documented as of this encounter Visit Diagnoses Not on filedocumented in this encounter
--- OUTSIDE RECORDS SUMMARY | 2024-11-21 16:21 | XMS_ITS | Encounter Summary ---
Author Organization [facility] Address [address] [place] [address] Phone Care Team Providers Care Utility Bagger Name Role Phone Unknown, Notinfile Primary Care Provider Unavail able Alta Garza ELEMENTARY ASSISTANT TEACHER Primary Care Provider [phone] Encounter Details Date Type Department Care Team (Latest Contact Info) Description 02/19/2024 Orders Only [facility] Scanning, Provider Social History Tobacco Use Types Packs/Day Years Used Date Smoking Tobacco: Never Assessed Comments Unknown Sex and Gender Information Value Date Recorded Sex Assigned at Not on file Legal Sex Female 8:44 PM COLOR SPRAYER Gender Identity Not on file Sexual Orientation Not on file documented as of this encounter Plan of Treatment Not on file documented as of this encounter Procedures Procedure Name Priority Date/Time Associated Diagnosis Comments SCAN - RADIOLOGY/IMAGING 02/19/2024 documented in this encounter Results * SCAN - RADIOLOGY/IMAGING (02/19/2024) Anatomical Region Laterality Modality Other us Provider Scanning Edited Result - Final documented in this encounter Visit Diagnoses Not on filedocumented in this encounter Care Teams Utility Bagger Relationship Specialty Start Date End Date Unknown, Malini PCP - General 05/16/23 10/21/24 Alta Garza, [address] [place] [address] PCP - General Family Medicine 10/22/24 documented as of this encounter
--- OUTSIDE RECORDS SUMMARY | 2024-11-21 16:21 | XMS_ITS | Referral Summary ---
Author Organization [facility] Address [address] [place] [address] Care Team Providers Care Sheet Ironworker Name Role Phone Antoni Anaya MD Primary Care Provider [phone] Source Comments [facility],non-owned Affiliates and Associated Physician Practices is amultiple site organization consisting of ambulatory clinics and hospital sitesin [place], [place] and [place]. This disclosure is being madepursuant to the Care Everywhere program and may not contain all information available regarding this patient. Last updated 18.[facility] [employer] Allergies No known active allergies Immunizations Name Administration Dates Next Due TDAP (7yrs+) 11/14/2017 Social History Tobacco Use Types Packs/Day Years Used Date Smoking Tobacco: Never Assessed Sex and Gender Information Value Date Recorded Sex Assigned at Not on file Gender Identity Not on file Sexual Orientation Not on file Plan of Treatment Not on file Care Teams Sheet Ironworker Relationship Specialty Start Date End Date Antoni Anaya MD [address] [place] [address] PCP - General Family Medicine 11/14/17
--- OUTSIDE RECORDS SUMMARY | 2024-11-21 16:21 | XMS_ITS | Encounter Summary ---
Author Organization [facility] Address [address] [place] [address] Phone Care Team Providers Care Department Chairperson Name Role Phone Unknown, Notinfsaniya Primary Care Provider Unavail able Alta Garza WEBSPHERE PROCESS SERVER DEVELOPER Primary Care Provider [phone] Encounter Details Date Type Department Care Team (Latest Contact Info) Description 02/16/2024 Orders Only [facility] Scanning, Provider Social History Tobacco Use Types Packs/Day Years Used Date Smoking Tobacco: Never Assessed Comments Unknown Sex and Gender Information Value Date Recorded Sex Assigned at Not on file Legal Sex Female 8:44 PM COVERAGE SPECIALIST RN Gender Identity Not on file Sexual Orientation Not on file documented as of this encounter Plan of Treatment Not on file documented as of this encounter Procedures Procedure Name Priority Date/Time Associated Diagnosis Comments SCAN - LABS 02/16/2024 documented in this encounter Results * SCAN - LABS (02/16/2024) us Provider Scanning Edited Result - Final documented in this encounter Visit Diagnoses Not on filedocumented in this encounter Care Teams Department Chairperson Relationship Specialty Start Date End Date Unknown, Malini PCP - General 05/16/23 10/21/24 Alta Garza, [address] [place] [address] PCP - General Family Medicine 10/22/24 documented as of this encounter
--- OUTSIDE RECORDS SUMMARY | 2024-11-21 16:21 | XMS_ITS | Encounter Summary ---
Author Organization [facility] Address [address] [place] [address] Care Team Providers Care Electrifier Operator Name Role Phone Unavailable Primary Care Provider Unavailabl e Encounter Details Date Type Department Care Team (Late st Contact Info) Description 11/13/2000 Outpatient Historical [facility] LASHAUN Viridiana Montez MD NO ADDRESS ON FILE Social History Tobacco Use Types Packs/Day Years Used Date Smoking Tobacco: Never Assessed Comments Unknown Sex and Gender Information Value Date Recorded Sex Assigned at Not on file Legal Sex Female 3:19 AM DISTRICT WIRE CHIEF Gender Identity Not on file Sexual Orientation Not on file documented as of this encounter Plan of Treatment Not on file documented as of this encounter Visit Diagnoses Not on filedocumented in this encounter
--- OUTSIDE RECORDS SUMMARY | 2024-11-21 16:21 | XMS_ITS | Patient Health Summary ---
Author Organization [facility] Address [address] [place] [address] Care Team Providers Care Draw End Hand Name Role Phone Antoni Anaya MD Primary Care Provider [phone] Note from [facility],non-owned Affiliates and Associated Physician Practices is amultiple site organization consisting of ambulatory clinics and hospital sitesin [place], [place], [place] and [place]. This disclosure is being madepursuant to the Care Everywhere program and may not contain all information available regarding this patient. Last updated 18.[facility] Allergies No known active allergies Immunizations * TDAP (7yrs+)(Given 11/14/2017) Social History Tobacco Use Types Packs/Day Years Used Date Smoking Tobacco: Never Assessed Sex and Gender Information Value Date Recorded Sex Assigned at Not on file Gender Identity Not on file Sexual Orientation Not on file Care Teams Draw End Hand Relationship Specialty Start Date End Date Antoni Anaya MD [address] [place] [address] PCP - General Family Medicine 11/14/17
--- OUTSIDE RECORDS SUMMARY | 2024-11-21 16:21 | XMS_ITS | Clinical Summary ---
Author Organization [facility] Address [address] [place] [address] Care Team Providers Care Pump Attendant Name Role Phone Antoni Anaya MD Primary Care Provider [phone] Source Comments [facility],non-owned Affiliates and Associated Physician Practices is amultiple site organization consisting of ambulatory clinics and hospital sitesin [place], [place], [place] and [place]. This disclosure is being madepursuant to the Care Everywhere program and may not contain all information available regarding this patient. Last updated 18.[facility] Allergies No known active allergies Immunizations Name Administration Dates Next Due TDAP (7yrs+) 11/14/2017 Social History Tobacco Use Types Packs/Day Years Used Date Smoking Tobacco: Never Assessed Sex and Gender Information Value Date Recorded Sex Assigned at Not on file Gender Identity Not on file Sexual Orientation Not on file Plan of Treatment Health Maintenance Due Date Last Done Comments LIPID TESTING 1982 MAMMOGRAM 1982 MEDICARE AWV 12 MONTHS 1982 PAP SMEAR 1982 HIV SCREENING 1997 HEPATITIS C SCREENING 06/23/2000 HEPATITIS B VACCINE (1 of 3 - 19+ 3-dose series) 2001 COVID-19 VACCINE (2023-2 5 season) 2024 INFLUENZA VACCINE (#1) 2024 DEPRESSION SCREENING 09/18/2024 DTAP/TDAP/TD VACCINES (2 - T d or Tdap) 11/14/2027 11/14/2017 ZOSTER VACCINE (1 of 2) 2032 HIB VACCINE Aged Out No longer eligi ble based on patient's age to complete this topic HPV VACCINE Aged Out No longer eligi ble based on patient's age to complete this topic MENINGOCOCCAL (Group B) VACCINE Aged Out No longer eligible based on patient's age to complete this topic MENINGOCOCCAL VACCINE Aged Out No airam priyanka eligible based on patient's age to complete this topic PNEUMOCOCCAL VACCINE Aged Out No long er eligible based on patient's age to complete this topic Care Teams Pump Attendant Relationship Specialty Start Date End Date Antoni Anaya MD [address] [place] [address] PCP - General Family Medicine 11/14/17
--- OUTSIDE RECORDS SUMMARY | 2024-11-21 16:21 | XMS_ITS | Clinical Summary ---
Author Organization [facility] Address [address] [address] Care Team Providers Care Director Of Pediatric Rehabilitation Name Role Phone Unavailable Primary Care Provider Unavailabl e Allergies Active Allergy Reactions Criticality Noted Date Comments Minocycline 12/27/2021 Medications metoprolol succinate XL (TOPROL XL) 25 MG 24 hr tablet TAKE 1 TABLET BY MOUTH TWICE A DAY TAKE WITH 1/2 [id number] TO EQUAL 75MG TWICE A DAY 180 tablet 3 12/08/2021 Active ALPRAZolam (XANAX) 1 MG tablet Take 1 mg by mouth at night if needed for anxiety Active metoprolol succinate XL (TOPROL-XL) 100 MG 24 hr tablet Take 100 mg by mouth 1 (one) time each day Do not crush or chew. Active hydrALAZINE 25 MG tablet Take 1.5 tablets (37.5 mg total) by mouth in the morning and 1.5 tablets (37.5 mg total) in the evening. 270 tablet 3 01/11/2022 Active Active Problems Problem Noted Date Diagnosed Date Cystic kidney disease 12/27/2021 Overview (12/27/2021): L RENAL CYST CHNE Chronic kidney disease, Stage II (mild) 12/28/19 Overview (12/27/2021): U/S - CHNE- R 10 L 9.6 Benign essential hypertension 12/27/2021 Overview (12/27/2021): NO DONNA RENAL ARTERIAL U/S CHNE Secondary hyperparathyroidism of renal origin Anemia of other chronic disease 12/27/2021 Acne 12/27/2021 Headache 12/27/2021 Autistic disorder, current or active state 12/27 Anxiety disorder 12/27/2021 Family History Relation Status Comments Father Mother Social History Tobacco Use Types Packs/Day Years Used Date Smoking Tobacco: Never Smokeless Tobacco: Never Alcohol Use Standard Drinks/Week Comments Never 0 (1 standard drink = 0.6 oz pur e alcohol) Comments Unknown Sex and Gender Information Value Date Recorded Sex Assigned at Not on file Legal Sex Female 2:58 PM EDT Gender Identity Not on file Sexual Orientation Not on file Plan of Treatment Health Maintenance Due Date Last Done Comments Pneumococcal Vaccine: Pediat rics (0 to 5 Years) and At-Risk Patients (6 to 64 Years) (1 of 2 - PCV) 1988 Hepatitis B Vaccine (1 of 3 - 19+ 3-dose series) 06/28 Influenza Vaccine (#1) 2024 Insurance MEDICARE MEDICAID [place]
--- OUTSIDE RECORDS SUMMARY | 2024-11-21 16:21 | XMS_ITS | Referral Summary ---
Author Organization [facility] Address [address] [place] [phone] Phone Care Team Providers Care Inspection Manager Name Role Phone Alta Garza NP Primary Care Provider [phone] Allergies Active Allergy Reactions Criticality Noted Date Comments Minocycline Dystonia High 12/27/2021 Medications escitalopram (LEXAPRO) 5 mg tablet Take 1 tablet (5 mg total) by mouth daily Active fexofenadine (Lorelei Allergy) 60 mg tablet Take 1 tablet twice a day by oral route. Active guaiFENesin ER (Mucinex) 600 mg 12 hr tablet Take 1 tablet every 12 hours by oral route. Active lisinopriL (PRINIVIL,ZESTR IL) 10 mg tablet Take 1 tablet (10 mg total) by mouth daily 30 tablet 05/27/2024 5 Active chlorthalidone (HYGROTON) 25 mg tablet Take 1 tablet (25 mg total) by mouth daily 30 tablet 06/11/2024 Active metoprolol XL (TOPROL-XL) 50 mg extended release tablet Take 3 tablets (150 mg total) by mouth daily 270 tablet 1 08/30/2024 5 Active Active Problems Problem Noted Date Diagnosed Date Secondary hyperparathyroidism of renal origin Stage 2 chronic kidney disease 02/14/2024 Hypertension, essential 02/14/2024 Social History Tobacco Use Types Packs/Day Years Used Date Smoking Tobacco: Never Smokeless Tobacco: Never Tobacco Cessation:Counseling Given: Not Answered Comments Unknown Sex and Gender Information Value Date Recorded Sex Assigned at Not on file Legal Sex Female 8:44 PM RESERVES CLERK Gender Identity Not on file Sexual Orientation Not on file Last Filed Vital Signs Vital Sign Reading Time Taken Comments Blood Pressure 129/87 02/14/2024 1:20 PM CDT Pulse 50 02/14/2024 1:20 PM CDT Temperature - - Respiratory Rate - - Oxygen Saturation - - Inhaled Oxygen Concentration - - Weight 77.2 kg (170 lb 3.2 oz) 02/14/2024 1:20 P M CDT Height 165.1 cm (5' 5 ) 02/14/2024 1:20 PM CDT Body Mass Index 28.32 02/14/2024 1:20 PM CDT Plan of Treatment Not on file Insurance MEDICARE [facility] MEDICARE [place] MEDICARE Care Teams Inspection Manager Relationship Specialty Start Date End Date Alta Garza NP [address] [place] [address] PCP - General Family Medicine 10/22/24
--- OUTSIDE RECORDS SUMMARY | 2024-11-21 16:21 | XMS_ITS | Data Portability ---
Author Organization [facility], Telehealth (patients home) Address [address] [place] [address] Assessment Encounter Date Assessment Date Assessment LastModified by Organization Details LastModified Time 02/13/2024 02/13/2024 Met with Alondra today for follow-up with her depression and anxiety. Doing well on Lexapro 5 mg. PHQ 2 = 0 TAMELA 7 = 2 25 minutes total spent-reviewing chart, meeting with patient [id number] by telehealth, sending prescription and documentation [email or web address] Not available 02/13/2024 18:23:15 07/10/2024 07/10/2024 met with Alondra to follow up on anxiety/depressi on and mood disorder with cycle PHQ9=4 GAD7=8 mild [email or web address] Not available 07/10/2024 13:33:23 08/13/2024 08/13/2024 Met with Alondra salas for follow up with PMDD and TAMELA. TAMELA-7 = 6 mild [email or web address] Not available 08/13/2024 11:39:00 08/27/2024 08/27/2024 Met with Alondra salas to discuss her PMDD PHQ-9 = 24 severe TAMELA-7 = 15 severe [email or web address] Not available 08/27/2024 20:40:51 09/04/2024 09/04/2024 Met with Alondra this am for genesight testing results PHQ9=4 GAD7=4 [email or web address] Not available 09/04/2024 11:03:13 Plan of Treatment Reminders Order Date Submit Date Provider Last Modified By Organization Details Last Modified Time Details Appointments Psychiatr ic Follow up 2024 09:30A M Erika Ferrer Not available Not available Not available Lab None recorded. Referral None recorded. Procedures None recorded. Surgeries None recorded. Imaging None recorded. Medication Orders Kasie 0.35 mg tablet 2023 024 [facility]/Pharmacy #[id number], [address] [place], [address], 08/27/2024 21:19:50 Lexapro 10 mg tablet 2023 024 [facility]/Pharmacy #[id number], [address] [place], [address], 08/13/2024 10:41:57 Lexapro 10 mg tablet 2023 024 [email or web address] [facility]/Pharmacy #[id number], [address] [place], [address], 08/04/2024 05:58:23 Lexapro 5 mg tablet 2023 024 [id number] [address] [place], [address], 02/13/2024 16:43:02 Patient TargetsNo targets recorded. Patient Instructions Encounter Date Encounter Id Patient Instructions Last Modified By Organization Details Last Modified Time 02/13/2024 [id number] anxiety disorder : care instructions [email or web address] Not available 02/13/2024 16:21:46 08/13/2024 [id number] premenstrual syndrome (PMS): care instructions [email or web address] Not available 08/13/2024 10:41:55 08/27/2024 [id number] premenstrual syndrome (PMS): care instructions [email or web address] Not available 08/27/2024 21:19:49 Reason for Referral None Reported. Results Created Date Observation Date Name Description Value Unit Range Abnormal Flag Note LastModifiedBy Organization Detail LastModifiedTime Result Notes None recorded. Problems Name Problem SNOMED Code Status Onset Date Resolution Date Notes Provider Name and Address Organization Details Recorded Time Autism spectrum disorder 77249191 Active 2023 Erika Ferrer CNM, PMHNP-BC [address], [place], [address], [facility] 4 10:35:59 Mild recurrent major depression 76606891 Active 2023 Erika Ferrer CNM, [facility] [address], [place], [address], [facility] 4 16:01:15 Depressive disorder 18782814 Active 2023 Erika Ferrer CNM, [facility]- [address], [place], [address], [facility] 4 16:01:59 Premenstrual dysphoric disorder 930805 Active 2023 Erika Ferrer CNM, [facility] [address], [place], [address], [facility] 4 13:39:43 Moderate recurrent major depression 18937369 Active 2023 Erika Ferrer CNM, [facility]- [address], [place], [address], [facility] 4 21:21:11 Chronic kidney disease 108471564 Active 2022 Erika Ferrer CNM, [facility]- [address], [place], [address], [facility] 3 16:33:19 Hypertensive disorder 57136309 Active 2022 Erika Ferrer CNM, [facility]- [address], [place], [address], [facility] 3 16:34:13 Autistic disorder 617767900 Active 2022 Erika Ferrer CNM, [facility]- [address], [place], [address], [facility] 3 16:34:25 Anxiety 26412070 Active 2022 [facility] [address], [place], [address], [facility] 3 17:52:50 Moderate major depression, single episode 76298747 Active 2022 Erika Ferrer CNM, [facility] [address], [place], [address], [facility] 3 17:53:43 Mood disorder 00326094 Active 2022 Erika Ferrer CNM, [facility] [address], [place], [address], [facility] 3 17:54:53 Generalized anxiety disorder 52830137 Active 2022 Erika Ferrer CNM, [facility] [address], [place], [address], [facility] 3 11:52:55 Mild depression 402545990 Active 2022 Erika Ferrer CNM, [facility] [address], [place], [address], [facility] 3 10:22:33 Problem Notes None recorded. Medical Equipment None Reported. Allergies No known drug allergies Medications Name Sig Start Date Stop Date Status Note LastModified by Organization Details LastModified Time Xanax 0.5 mg tablet Take 1 tablet every 4-6 hours by oral route as needed. active Not Available Not Available No t Available clindamyci n HCl 300 mg capsule TAKE 1 CAPSULE BY MOUTH EVERY 12 HOURS active Not Available Not Available No t Available alprazolam 1 mg tablet TAKE 1 TABLET BY MOUTH TWICE A DAY FOR LAB DRAWS FOR 5 DAYS active Not Available Not Available No t Available fluconazol e 150 mg tablet TAKE 1 TABLET BY MOUTH TODAY, THEN TAKE 1 ADDITION AL TABLET 72 HOURS LATER active Not Available Not Available No t Available metoprolol succinate ER 50 mg tablet,ext ended release 24 hr TAKE 3 TABLETS BY MOUTH EVERY DAY active Not Available Not Available No t Available prednisone 20 mg tablet TAKE 2 TABLETS BY MOUTH EVERY DAY FOR 5 DAYS active Not Available Not Available No t Available clonazepam 0.5 mg tablet Take 1 tablet twice a day by oral route. active 4-6 hours as needed Not Available Not Available Not Available metoprolol succinate ER 100 mg tablet,ext ended release 24 hr TAKE 1/2 TABLET BY MOUTH TWICE A DAY TAKE WITH 25MG TAB TWICE A DAY TO EQUAL 75MG TWICE A DAY active Not Available Not Available No t Available hydralazin e 25 mg tablet TAKE 1 AND A HALF TABLET BY MOUTH IN THE MORING AND IN THE EVENING 07/10 completed Not Available Not Available Not Available metronidaz ole 500 mg tablet 500 MG ORALLY EVERY 12 HOURS active Not Available Not Available No t Available chlorthali done 25 mg tablet TAKE 1 TABLET (25 MG TOTAL) BY MOUTH DAILY. active Not Available Not Available No t Available amlodipine 5 mg tablet TAKE 1 TABLET (5 MG TOTAL) BY MOUTH DAILY. active Not Available Not Available No t Available amlodipine 10 mg tablet TAKE 1 TABLET BY MOUTH EVERY DAY active Not Available Not Available No t Available lisinopril 10 mg tablet TAKE 1 TABLET BY MOUTH EVERY DAY active Not Available Not Available No t Available hydroxyzin e HCl 25 mg tablet 1/2 TAB-1 TAB UP TO 3 TIMES A DAY NEEDED FOR ANXIETY 2024 active Not Available Not Available Not Avai lable amoxicilli n 400 mg/5 mL oral suspension 6.25 ML BY MOUTH TWICE A DAY FOR 10 DAYS active Not Available Not Available No t Available metoprolol succinate ER 25 mg tablet,ext ended release 24 hr TAKE 1 TABLET BY MOUTH TWICE A DAY *TAKE WITH 1/2 OF 100MG TO EQUAL 75MG TWICE A DAY active Not Available Not Available No t Available albuterol sulfate HFA 90 mcg/actuat ion aerosol inhaler INHALE 2 PUFFS EVERY 4-6 HOURS NEEDED FOR SHORTNES S OF BREATH OR WHEEZING active Not Available Not Available No t Available Mucinex 600 mg tablet, extended release Take 1 tablet every 12 hours by oral route. active Not Available Not Available No t Available Lexapro 10 mg tablet Take 1 tablet every day by oral route. 2023 active Not Available Not Available Not Avai lable aripiprazo le 5 mg tablet TAKE 1 TABLET BY MOUTH EVERY DAY 07/31 completed Not Available Not Available Not Available escitalopr am 5 mg tablet TAKE 1 TABLET BY MOUTH EVERY DAY active Not Available Not Available No t Available nitrofuran toin monohydrat e/macrocry stals 100 mg capsule TAKE ONE CAPSULE BY MOUTH EVERY 12 HOURS WITH FOOD FOR 7 DAYS. 07/31 completed Not Available Not Available Not Available guaifenesi n 600mg bid 06/29 completed Not Available Not Available Not Available Lorelei Allergy 60 mg tablet Take 1 tablet twice a day by oral route. active Not Available Not Available No t Available Incassia 0.35 mg tablet TAKE 1 TABLET BY MOUTH EVERY DAY active Not Available Not Available No t Available Vitals Date Recorded Body height Body mass index (BMI) Body weight Systolic blood pressure Diastolic blood pressure Provider Name and Address Organization Details Last Updated DateTime 07/10/2024 165.74 cm 27.9 kg/m2 01613.11 g 99 mm[Hg] 69 mm[Hg] [facility] 4 11:32:35 Date Recorded Body height Body mass index (BMI) Body weight Heart rate Systolic blood pressure Diastolic blood pressure Provider Name and Address Organization Details Last Updated DateTime 4 165.74 cm 28.1 kg/m2 34898.7 g 61 /min 120 mm[Hg] 80 mm[Hg] [facility] 4 10:25:46 Date Recorded Body height Body mass index (BMI) Body weight Heart rate Systolic blood pressure Diastolic blood pressure Provider Name and Address Organization Details Last Updated DateTime 4 165.74 cm 28.2 kg/m2 92763.3 g 54 /min 137 mm[Hg] 93 mm[Hg] [facility] 4 10:47:49 Date Recorded Body height Body mass index (BMI) Body weight Heart rate Systolic blood pressure Diastolic blood pressure Provider Name and Address Organization Details Last Updated DateTime 4 165.74 cm 27.9 kg/m2 12002.1 1 g 58 /min 115 mm[Hg] 78 mm[Hg] [facility] 4 10:20:13 Social History Question Answer Notes LastModified by Organizat ion Details LastModified Time Tobacco Smoking Status Never Smoker Erika Ferrer, CHASITY, PMHNP-BC [address], [place], [address], [facility] 06/29/2023 21:13:04 What Is Your Level Of Alcohol Consumption? None [email or web address] Information not available 06/29/2023 Are There Any Guns Present In Your Home? No [email or web address] Information not available 06/29/2023 Do You Feel Safe In Your Home? Yes Information not available 06/29/2023 Do You Feel Stressed (tense, Restless, Nervous, Or Anxious, Or Unable To Sleep At Night)? [id number] [email or web address] Information not available 06/29/2023 Do You Use Any Illicit Or Recreational Drugs? No [email or web address] Information not available 06/29/2023 Has Tobacco Cessation Counseling Been Provided? No [email or web address] Information not available 06/29/2023 Do You Or Have You Ever Used Any Other Forms Of Tobacco Or Nicotine? No [email or web address] Information not available 06/29/2023 Sex: Unknown Functional Status None recorded. Mental Status None recorded. Family History Relationship Description Onset Age of this Age Resolved Age Notes LastModified by Organization Details LastModified Time Maternal Grandmother Anxiety disorder [email or web address] Not available 2022 21:10:34 Paternal Uncle Paranoid disorder Great uncle [email or web address] Not available 06/29/2023 21:12:16 Medical History Condition Response Other Y Psychiatric/Mental Health Condition Y Auditory Hallucinations Y Hypertension Y Kidney Disease Y Gynecological History Statement/Question Response Menses Monthly Y LMP Definite Date of LMP 06/22/2023 Obstetrics History GPAL:G 0 P 0 0 0 0 Past Encounters Encounter ID Performer Location Encounter Start Date Encounter Closed Date Diagnosis/Indication Diagnosis SNOMED-CT Code Diagnosis ICD10 Code Diagnosis Note [id number] Erika Ferrer CNM, [facility]- Main Office [address] [place] [address] 06/29/2023 16:05:48 07/03/2023 09:06:48 Anxiety 95711900 F41.1 Start Lexapro daily.Cont inue clonazepam , pt mom states that 0.05 did not help this am. discussed taking clonazepam 1mg in am and taking 0.5 midday or in the evening if needed.sto p Xanax at the present time Moderate m ajor depression, single episode 26939999 F32.1 starting lexapro 5mg daily. will most likely increase dosage at next visit Mood disorder 04348062 F 41 [id number] Erika Ferrer CNM, [facility] Main Office [address] [facility] [place] [address] 07/05/2023 11:01:49 07/05/2023 11:45:35 Moderate major depression, single episode 13317300 F32.1 continue lexapro 5mg daily- will switch to hs due to making her foggy feeling after taking it in the am Mood disorder 94252414 F 41 Continue Abilify 5mg through the weekend. Will start weaning off of the Abilify next monday. offered just stopping Abilify vs taking every other day for a week.suspe ct psychotic episodes related to UTI / antibiotic s Generalize d anxiety disorder 65905924 F41.1 continue Lexapro 5mg dailycloze igor as needed for anxiety. Keep to a minimum [id number] Erika Ferrer CNM, [facility] Main Office [address] [place] [address] 07/31/2023 09:46:39 07/31/2023 10:21:11 Generalized anxiety disorder 01335158 F41.1 continue Lexapro 5mg dailycloze igor as needed for anxiety. Keep to a minimum Mild depression 89537661 3 F32.0 continue with Lexapro 5mgrtc 3 months. rtc sooner if needed [id number] Erika Ferrer CNM, [facility] Main Office [address] [facility] [place] [address] 10/10/2023 09:38:41 10/19/2023 19:20:35 Generalized anxiety disorder 94266586 F41.1 continue Lexapro 5mg daily Mild depression 15878632 3 F32.0 lexaprocon tinue with Lexapro 5mgrtc 6 months. rtc sooner if needed. Mother will call to schedule. Autism spe ctrum disorder 13660614 F84.0 [id number] Erika Ferrer CNM, [facility] Main Office [address] [facility] [place] [address] 02/13/2024 15:56:56 02/13/2024 18:28:41 Generalized anxiety disorder 91742332 F41.1 continue Lexapro 5mg dailyNot presently attending therapy due to difficulty finding someone that will accept her insuranceR eturn to clinic in 6 months in person or by telehealth Alondra will call and schedule visit [id number] Erika Ferrer CNM, [facility] Main Office [address] [facility] [place] [address] 07/10/2024 11:26:49 07/10/2024 13:41:23 Generalized anxiety disorder 99325739 F41.1 offered to restart Abilify 5mg daily for delusions that occur with cycle.Incr ease Lexpro to 10mg dailyNot presently attending therapy due to difficulty finding someone that will accept her insurance. 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- can get hormones checked through [facility] vs [facility] can order and have sent to [facility] Premenstru al dysphoric disorder 683196 F32.81 offered to restart Abilify 5mg daily for delusions that occur with cycle.Incr ease Lexpro to 10mg dailyoffer ed hormone testing [id number] Erika Ferrer CNM, [facility] Main Office [address] [facility] [place] [address] 08/13/2024 10:22:16 08/14/2024 12:13:38 Generalized anxiety disorder 65393659 F41.1 continue Lexpro to 10mg dailysched uled to see therapist this weekend for the first timertc 3 month Premenstru al dysphoric disorder 596352 F32.81 continue Lexpro to 10mg daily [id number] Erika Ferrer CNM, [facility] Main Office [address] [place] [address] 08/27/2024 10:43:00 08/28/2024 10:40:22 Premenstrual dysphoric disorder 118082 F32.81 continue Lexpro 10mg dailyWill start progestero ne only pill to see if regulating hormones improves interest to intrusive thoughts midcycleNo t a candidate for OCPs due to hypertensi on.will start Progestero ne only pill on monday following cycle starting. if cycle starts on monday start pill on monday. ocp consent signed Melva d anxiety disorder 10386593 F41.1 continue Lexpro 10mg daily. offeredsch eduled to see therapist this weekend for the first time Moderate r ecurrent major depression 38618258 F33.1 continue lexapro 10mg dailyGenes ite testing performed [facility] 1 week for test results [id number] Erika Ferrer CNM, PMHNP- Main Office [address] [place] [address] 09/04/2024 10:17:57 09/04/2024 14:56:11 Moderate major depression, single episode 40071640 F32.1 continue lexapro 10mg dailystill working on getting into therapygen esite results reviewed and results sent to Jacqui Anxiety 30836437 F41.1 Continue Lexapro daily.Hydr oxyzine 12.5mg- 25mg up to 3 times a day Health Concerns Section Related Observation LastModified by Organization Detai ls LastModified Time None Recorded Concern Status LastModified by Organization Details LastModified Time None Recorded Advance Directives Directive None Recorded Payers Encounter Date Sequence Insurance Name Policy Number Policy Rodriguez Covered Member ID Rodriguez Member ID Guarantor Name 02/13/2024 1 [place] [id number] Alondra Dubon [id number] Alondra Dubon 02/13/2024 2 [place] Alondra Dubon [id number] Alondra Dubon 07/10/2024 1 [place] [id number] Alondra Dubon [id number] Alondra Dubon 07/10/2024 2 [place] Alondra Dubon [id number] Alondra Dubon 08/13/2024 1 [place] [id number] Alondra Dubon [id number] Alondra Dubon 08/13/2024 2 [place] [facility] [facility] [place] A[place] Alondra Dubon [id number] Alondra Dubon 08/27/2024 1 [place] [id number] Alondra Dubon [id number] Alondra Dubon 08/27/2024 2 [place] [facility] PUBLIC AID Alondra Dubon [id number] Alondra Dubon 09/04/2024 1 [place] [id number] Alondra Dubon [id number] Alondra Dubon 09/04/2024 2 [place] [facility] AID Alondra Dubon [id number] Alondra Dubon Notes Date Note Type Note Provider Name and Address Organization Details Recorded Time 02/13/2024 text/html Met with Alondra today for follow-up with her depression and anxiety. Alondra is doing well. Tolerating Lexapro well. Denies any feelings of worthlessness, hopelessness, guilt. Does endorse some feelings of helplessness. Alondra has been enjoying going to the [facility] 2-3 times a week. She is excited about a trip that she is taking in May to [place]. She denies any feelings of suicidal ideation or homicidal ideation. Denies any auditory hallucinations or visual hallucinations.PHQ 2 = 0 TAMELA-7 = 2 mild Erika Ferrer, CHASITY, PMHNP- [address], [place], [address], [facility] 02/13/2024 18:28:32 07/10/2024 text/html Met with Alondra today. Jacqui present for the visit. Alondra's been struggling over the last 3 cycles with an occasional delusion bring trick . This last week she is experienced a delusional on 2 separate occasions think in the city of [place] called her brother stating she cannot be in a swimsuit at the splash pad. 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 These delusions occur infrequently but have occurred over her last 3 periods. She states her mood to be good. Denies any feelings of worthlessness, hopelessness, helplessness. Denies any SI or HI. Denies any auditory hallucinations or visual hallucinations. States her sleep is been not good, she wakes through the night. Getting 10 hours of sleep at night. Erika Ferrer CNM, [facility]- [address], [place], [address], [facility] 07/10/2024 13:40:41 08/13/2024 text/html Met with Alondra today. Alondra is doing well on her Lexapro 10 mg. States her mood to be okay, tired denies feelings of worthlessness, helplessness, or helplessness. Feeling like her anxiety is improving. Last week she was on her cycle and denies having any brain tricks delusions. Mother also states last week cycle Mariana did not experience any delusions. Appetite is okay. Sleep is improving with new pillows. Alondra is getting 9/2 to 10 hours of sleep at night. Denies any SI or HI. Denies any auditory hallucinations or visual hallucinations.[place] has started a new art class, and is enjoying that. Erika Ferrer CNM, [facility]- [address], [place], [address], [facility] 08/13/2024 11:39:39 08/27/2024 text/html Met with Alondra today due to struggling over the last 4 days with intrusive thoughts. Experience intrusive thoughts twice daily 08/22 through 08/26. Was seen yesterday by Alta due to having some vaginal discharge and was treated for a yeast infection. UTI negative. Mom is interested in Alondra getting started on some control for regulating her hormones. Alondra states her mood not to be good. Endorsing feelings of worthlessness, hopelessness, and helplessness. Denies any SI or HI. Denies any auditory hallucinations or visual hallucinations. Mom(Jacqui) expressing desire for GeneSight testing. Erika Ferrer CNM, [facility]- [address], [place], [address], [facility] 08/27/2024 21:23:03 09/04/2024 text/html Met with Alondra mak am to discuss genesite testing. improvement in intrusive thoughts. mother concerned about intrusive thoughts returning and needing something for the anxiety that comes with those thoughts. has been very impatient lately. Mood is OK. Denies any feelings of wothlessness, helplessness or hopelessness. Denies any SI or HI. Denies any AH or VH. Erika Ferrer, CHASITY, PMHNP-BC [address], [place], [address], [facility] 09/04/2024 11:11:23 OBGyn Episode No OBEpisode recorded.
--- OUTSIDE RECORDS SUMMARY | 2024-11-21 16:21 | XMS_ITS | Clinical Summary ---
Author Organization [facility] Address [address] [place] [address] Phone Care Team Providers Care Parachute Manufacturing Supervisor Name Role Phone Alta Garza APRN, CNP Primary Care Provider Beltran price Medications escitalopram (Lexapro) 10 MG Tablet Take 10 mg by mouth daily. Active hydrOXYzine (ATARAX) 25 MG Tablet Take 25 mg by mouth if needed. Active Active Problems Problem Noted Date Diagnosed Date TAMELA (generalized anxiety disorder) 10/02/2024 Encounters Date Type Department Care Team Description 11/11/2024 10:30 AM EXHIBIT CARPENTER Telemedicine [facility] [address] [place] [phone] Maxine Santos LCPC Discharge Disposition: Discharged to home or Selfcare 11/11/2024 Travel 10/28/2024 3:00 PM EXHIBIT CARPENTER Telemedicine [facility] [address] [place] [phone] Maxine Santos LCPC TAMELA (generalized anxiety disorder) (Primary Dx) Discharge Disposition: Discharged to home or Selfcare 10/28/2024 Travel 10/14/2024 1:00 PM EXHIBIT CARPENTER Outpatient Clinic Visit [facility] [address] [place] [address] [phone] Maxine Santos LCPC TAMELA (generalized anxiety disorder) (Primary Dx) Discharge Disposition: Discharged to home or Selfcare 10/14/2024 Travel 10/02/2024 1:00 PM EXHIBIT CARPENTER [facility] [address] [place] [address] Maxine Santos LCPC TAMELA (generalized anxiety disorder) (Primary Dx) Discharge Disposition: Discharged to home or Selfcare 10/02/2024 Travel from Last 3 Months Family History Medical History Relation Name Comments No Known Problems Brother Gus (39) mentlal healrh Maternal Grandmother No Known Problems Mother Jacqui (68) Relation Name Status Comments Brother Gus (39) Alive Father Arpit (70) Alive Maternal Grandfather Alive Maternal Grandmother Mother Jacqui (68) Alive Social History Tobacco Use Types Packs/Day Years Used Date Smoking Tobacco: Never Smokeless Tobacco: Never Tobacco Cessation:Counseling Given: Not Answered Alcohol Use Standard Drinks/Week Comments Never 0 (1 standard drink = 0.6 oz pur e alcohol) Sexually Active Control Partners Comments Never Comments Unknown Sex and Gender Information Value Date Recorded Sex Assigned at Not on file Legal Sex Female 2:26 PM EXHIBIT CARPENTER Gender Identity Not on file Sexual Orientation Not on file Plan of Treatment Upcoming Encounters Date Type Department Care Team (Latest Contact Info) Description 12/03/2024 1:00 PM CDT Outpatient Clinic Visit [facility] [address] [place] [address] Maxine Santos LCPC [address] [place] [address] Discharge Disposition: Discharged to home or Selfcare Health Maintenance Due Date Last Done Comments Hepatitis C Virus (HCV) Screening 1982 Mammogram 1982 Hepatitis B Immunization (1 of 3 - 19+ 3-dose series) 2001 Pap Smear 2003 Cervical Cancer Screening (CCS) 2012 HPV/Cotest 2012 Discussion re Starting/Frequency of Mammograms 2022 Influenza Immunization (#1) 05/19/202406/19, 06/18/2021, 11/30/2017 SARS-COV-2 Immunization ( season) 2024 07/11/2023, 06/18/2021, 11/22/2020, Additional history exists Respiratory Syncytial Virus (RSV) Immunization (Adult) (1 - 1-dose 75+ series) 2057 TdaP Immunization Completed 11/14/2017 Meningococcal Immunization (ACWY) Aged Out No longer eligible based on patient's age to complete this topic Pneumococcal Immunization Combined Aged Out No longer eligible based on patient's age to complete this topic Rotavirus Immunization Aged Out No lo nger eligible based on patient's age to complete this topic Goals Goal Patient Goal Type Associated Problems Recent Progress Patient-Stated? Author ANXIETY Anxiety Improving( 2:25 PM EXHIBIT CARPENTER) Yes Maxine Santos, [facility] Note: Process past trauma Goal/Objective: Decrease anxiety and trauma symptoms. Anticipated Time Frame for Goal Completion: 6 months Goal Reviewed with: patient Readiness to change: Ready to change Department associated with goal: [facility] Steps to achieve goal: will attend counseling/psychotherapy sessions at least once monthly, at least 6 sessions, utilizing individual and/or group sessions to express thoughts and feelings. to identify, verbalize and process at least three contributing factors/triggers to anxiety and depression. to identify and verbalize at least three actions/skills to prevent and/or cope with anxiety and depression. to put into action, at least one time weekly, for one month, an action/skill to prevent and or cope with anxiety and depression. [place] [address] MEDICARE Care Teams Parachute Manufacturing Supervisor Relationship Specialty Start Date End Date Alta Garza APRN, PHONE CIRCUIT OPERATOR PCP - General Certified Nurse Practitioner 09/20/24
--- OUTSIDE RECORDS SUMMARY | 2024-11-21 16:21 | XMS_ITS | Clinical Summary ---
Author Organization [facility] Address [address] [facility] [address] [place] [address] Phone Care Team Providers Care Speeder Operator Name Role Phone Alta Garza NP Primary Care Provider [phone] Allergies Active Allergy Reactions Criticality Noted Date [...] on file Legal Sex Female 8:44 PM AVIONICS ELECTRONICS TECHNICIAN Gender Identity Not on file Sexual Orientation Not on file Obstetrics History Last Filed Vital Signs Vital Sign Reading [...] 02/14/2024 1:20 PM CDT Plan of Treatment Health Maintenance Due Date Last Done Comments Breast Cancer Screening-Mammogram 1982 Cervical Cancer Screening 1982 Depression Screening 1982 Hepatitis C Screening 1982 Varicella Vaccines (1 of 2 - 13+ 2-dose series) 1995 Hepatitis B Screening 2000 Regular Well Visit/Exam 18-64 2000 Covid-19 Vaccine ( season) 2024 07/11/2023, 06/18/2021, 11/22/2020, Additional history exists Influenza Vaccine (#1) 2024 , 06/18/2021, 11/30/2017 DTaP/Tdap/Td Vaccine (2 - Td or Tdap) 11/14/2027 11/14/2017 HPV Vaccines Aged Out No longer eligi ble based on patient's age to complete this topic Pneumococcal vaccine <65 Aged Out No longer eligible based on patient's age to complete this topic Insurance MEDICARE IDPA MEDICARE IDPA [facility] MEDICARE Care Teams Speeder Operator Relationship Specialty Start Date End Date Alta Garza NP [address] [place], [place] [id number] PCP - General Family Medicine 10/22/24
--- OUTSIDE RECORDS SUMMARY | 2024-11-21 16:21 | XMS_ITS | Clinical Summary ---
Author Organization [facility] Address [address] [facility] Attn: Epic Prelude ADT [place] [address] Care Team Providers Care Police Shift Commander Name Role Phone Unavailable Primary Care Provider Unavailabl e Social History Tobacco Use Types Packs/Day Years Used Date Smoking Tobacco: Never Assessed Comments Unknown Sex and Gender Information Value Date Recorded Sex Assigned at Not on file Legal Sex Female 3:19 AM PICKER TENDER Gender Identity Not on file Sexual Orientation Not on file Plan of Treatment Health Maintenance Due Date Last Done Comments DTAP/TDAP/TD VACCINES (1 - Tdap) 2001 HEPATITIS B VACCINES (1 of 3 - 19+ 3-dose series) 2001 CERVICAL CANCER SCREENING 2012 BREAST CANCER SCREENING 2022 INFLUENZA VACCINE (#1) 2024 HPV VACCINES Aged Out No longer eligi ble based on patient's age to complete this topic
--- OUTSIDE RECORDS SUMMARY | 2024-11-22 14:06 | XMS_ITS | Clinical Summary ---
Author Organization [facility] Address [address] [facility] [place] [facility] Attn: Epic Prelude ADT [place] [address] Care Team Providers Care Needle Leader Name Role Phone Unavailable Primary Care Provider Unavailabl e Social History Tobacco Use Types Packs/Day Years Used Date Smoking Tobacco: Never Assessed Comments Unknown Sex and Gender Information Value Date Recorded Sex Assigned at Not on file Legal Sex Female 3:19 AM DREDGE OPERATOR SUPERVISOR Gender Identity Not on file Sexual Orientation [...]
--- OUTSIDE RECORDS SUMMARY | 2024-11-22 14:06 | XMS_ITS | Encounter Summary ---
Author Organization [employer] Address [address] [place] [address] Care Team Providers Care Hop Grower Name Role Phone Unavailable Primary Care Provider [...] on file Legal Sex Female 3:19 AM WELDER FITTER ARC Gender Identity Not on file Sexual Orientation Not on file documented as of this encounter Plan of Treatment Not on file documented as of this encounter Visit Diagnoses Not on filedocumented in this encounter
--- OUTSIDE RECORDS SUMMARY | 2024-11-22 14:06 | XMS_ITS | Clinical Summary ---
Author Organization [facility] Address [address] [address] Care Team Providers Care Lead Front Desk Agent Name Role Phone Unavailable Primary Care Provider Unavailabl e Allergies Active Allergy Reactions Criticality Noted Date Comments Minocycline 12/27/2021 Medications metoprolol succinate XL (TOPROL XL) 25 MG 24 hr tablet TAKE 1 TABLET BY MOUTH TWICE A DAY TAKE WITH 1/2 [id number] TO EQUAL 75MG TWICE A DAY 180 [...]
--- OUTSIDE RECORDS SUMMARY | 2024-11-22 14:06 | XMS_ITS | Encounter Summary ---
Author Organization [facility] Address [address] [place] [address] Care Team Providers Care Automobile Detailer Name Role Phone Unavailable Primary Care Provider [...] on file Legal Sex Female 3:19 AM COMMERCIAL TITLE EXAMINER Gender Identity Not on file Sexual Orientation Not on file documented as of this encounter Plan of Treatment Not on file documented as of this encounter Visit Diagnoses Not on filedocumented in this encounter
--- OUTSIDE RECORDS SUMMARY | 2024-11-22 14:06 | XMS_ITS | Clinical Summary ---
Author Organization [facility] Address [address] [place] [address] Phone Care Team Providers Care Short Order Cook Name Role Phone Alta Garza APRN, CNP Primary Care Provider Beltran price Medications escitalopram (Lexapro) 10 MG Tablet Take 10 mg by mouth daily. Active hydrOXYzine (ATARAX) 25 MG Tablet Take 25 mg by mouth if needed. Active Active Problems Problem Noted Date Diagnosed Date TAMELA (generalized anxiety disorder) 10/02/2024 Encounters Date Type Department Care Team Description 11/11/2024 10:30 AM WOOD CASKET MAKER Telemedicine [facility] [address] [place] [phone] Maxine Santos LCPC Discharge Disposition: Discharged to home or Selfcare 11/11/2024 Travel 10/28/2024 3:00 PM WOOD CASKET MAKER [facility]icine [facility] [address] [place] [phone] Maxine Santos LCPC TAMELA (generalized anxiety disorder) (Primary Dx) Discharge Disposition: Discharged to home or Selfcare 10/28/2024 Travel 10/14/2024 1:00 PM WOOD CASKET MAKER Outpatient Clinic Visit [facility] [address] [place] [address] [phone] Maxine Santos LCPC TAMELA (generalized anxiety disorder) (Primary Dx) Discharge Disposition: Discharged to home or Selfcare 10/14/2024 Travel 10/02/2024 1:00 PM WOOD CASKET MAKER [facility] [address] [place] [address] Maxine Santos LCPC TAMELA (generalized anxiety disorder) [...] on file Legal Sex Female 2:26 PM WOOD CASKET MAKER Gender Identity Not on file Sexual Orientation Not on file Plan of Treatment Upcoming Encounters Date Type Department Care Team (Latest Contact Info) Description 12/03/2024 1:00 PM CDT Outpatient Clinic Visit [facility] [address] [place] [address] Maxine Santos LCPC [address] [place] [address] Discharge Disposition: Discharged to home or Selfcare [...] Patient-Stated? Author ANXIETY Anxiety Improving( 2:25 PM WOOD CASKET MAKER) Yes Maxine Santos, [facility] Note: Process past trauma Goal/Objective: Decrease anxiety and trauma symptoms. Anticipated Time Frame for Goal Completion: 6 months Goal Reviewed with: patient Readiness to change: Ready to change Department associated with goal: [facility] Steps to achieve goal: [...] with anxiety and depression. Insurance [place]ICAID [place] MEDICARE Care Teams Short Order Cook Relationship Specialty Start Date End Date Alta Garza APRN, UTILITY WORKER [place] PCP - General Certified Nurse Practitioner 09/20/24
--- OUTSIDE RECORDS SUMMARY | 2024-11-22 14:06 | XMS_ITS | Clinical Summary ---
Author Organization [facility] Address [address] [facility] [address] Care Team Providers Care Tool Programmer Name Role Phone Antoni Anaya MD Primary Care Provider [phone] Source Comments [facility]non-owned Affiliates and Associated Physician Practices is amultiple site organization consisting of ambulatory clinics and hospital sitesin [place], [place], [place] and [place]. This disclosure is being madepursuant to the Care Everywhere program and may not contain all information available regarding this patient. Last updated 18.[facility] Allergies No known active allergies Immunizations Name [...] age to complete this topic Care Teams Tool Programmer Relationship Specialty Start Date End Date Antoni Anaya MD [address] [place] [address] PCP - General Family Medicine 11/14/17
--- OUTSIDE RECORDS SUMMARY | 2024-11-22 14:06 | XMS_ITS | Clinical Summary ---
Author Organization [facility] Address [address] [facility] [address] [place] [address] Phone Care Team Providers Care Plasma Processor Name Role Phone Alta Garza NP Primary Care Provider [phone] Allergies Active Allergy Reactions Criticality Noted Date [...] on file Legal Sex Female 8:44 PM FIREARMS MODEL MAKER Gender Identity Not on file Sexual [...] this topic Insurance MEDICARE IDPA MEDICARE IDPA [facility] MEDICARE Care Teams Plasma Processor Relationship Specialty Start Date End Date Alta Garza NP [address] [place], [place] [phone] PCP - General Family Medicine 10/22/24
--- OUTSIDE RECORDS SUMMARY | 2024-11-22 14:06 | XMS_ITS | Patient Health Summary ---
Author Organization [facility] Address [address] [facility] [place] [address] Care Team Providers Care Jewelry Dipper Name Role Phone Antoni Anaya MD Primary Care Provider [phone] Note from [facility],non-owned Affiliates and Associated Physician Practices is amultiple site organization consisting of ambulatory clinics and hospital sitesin [place], [place], [place] and [place]. This disclosure is being madepursuant to the Care Everywhere program and may not contain all information available regarding this patient. Last updated 18.[facility] Allergies No known active allergies Immunizations * TDAP (7yrs+)(Given 11/14/2017) Social History Tobacco Use Types Packs/Day Years Used Date Smoking Tobacco: Never Assessed Sex and Gender Information Value Date Recorded Sex Assigned at Not on file Gender Identity Not on file Sexual Orientation Not on file Care Teams Jewelry Dipper Relationship Specialty Start Date End Date Antoni Anaya MD [address] [place] [address] PCP - General Family Medicine 11/14/17
--- OUTSIDE RECORDS SUMMARY | 2024-11-22 14:06 | XMS_ITS | Encounter Summary ---
Author Organization [facility] Address [address] [place] [address] Phone Care Team Providers Care Neuro Intensivist Physician Name Role Phone Unknown, Notinfsaniya Primary Care Provider Unavail able Alta Garza TOPOGRAPHICAL SURVEYOR Primary Care Provider [phone] Encounter Details Date Type Department Care Team (Latest Contact Info) Description 02/16/2024 Orders Only [facility] Scanning, Provider Social History Tobacco Use Types Packs/Day Years Used Date Smoking Tobacco: Never Assessed Comments Unknown Sex and Gender Information Value Date Recorded Sex Assigned at Not on file Legal Sex Female 8:44 PM PACKER INSULATION Gender Identity Not on file Sexual Orientation [...] on filedocumented in this encounter Care Teams Neuro Intensivist Physician Relationship Specialty Start Date End Date Unknown, Malini PCP - General 05/16/23 10/21/24 Alta Garza, MARCO [address] [place] [address] PCP - General Family Medicine 10/22/24 documented as of this encounter
--- OUTSIDE RECORDS SUMMARY | 2024-11-22 14:06 | XMS_ITS | Referral Summary ---
Author Organization [facility] Address [address] [facility] [address] [place] [address] Phone Care Team Providers Care Clinical Nursing Intern Name Role Phone Alta Garza NP Primary Care Provider [phone] Allergies Active Allergy Reactions Criticality Noted Date [...] on file Legal Sex Female 8:44 PM TRUCK DOCK MATERIAL MOVER Gender Identity Not on file Sexual Orientation [...] of Treatment Not on file Insurance MEDICARE [facility] MEDICARE IDPA IDND MEDICARE Care Teams Clinical Nursing Intern Relationship Specialty Start Date End Date Alta Garza NP [address] [place] [address] PCP - General Family Medicine 10/22/24
--- OUTSIDE RECORDS SUMMARY | 2024-11-22 14:06 | XMS_ITS | Encounter Summary ---
Author Organization [facility] Address [address] [place] [address] Phone Care Team Providers Care Flask Handler Name Role Phone Unknown, Notinfile Primary Care Provider Unavail able Alta Garza PSYCHIATRIC TECHNICIAN ASSISTANT Primary Care Provider [phone] Encounter Details Date Type Department Care Team (Latest Contact Info) Description 02/19/2024 Orders Only [facility] Scanning, Provider Social History Tobacco Use Types Packs/Day Years Used Date Smoking Tobacco: Never Assessed Comments Unknown Sex and Gender Information Value Date Recorded Sex Assigned at Not on file Legal Sex Female 8:44 PM ASSOCIATE FINANCIAL REPRESENTATIVE Gender Identity Not on file Sexual Orientation [...] on filedocumented in this encounter Care Teams Flask Handler Relationship Specialty Start Date End Date Unknown, Malini PCP - General 05/16/23 10/21/24 Alta Garza, MARCO [address] [place] [address] PCP - General Family Medicine 10/22/24 documented as of this encounter
--- OUTSIDE RECORDS SUMMARY | 2024-11-22 14:06 | XMS_ITS | Referral Summary ---
Author Organization [facility] Address [address] [facility] [place] [address] Care Team Providers Care Drop Board Man Name Role Phone Antoni Anaya MD Primary Care Provider [phone] Source Comments [facility],non-owned Affiliates and Associated Physician Practices is amultiple site organization consisting of ambulatory clinics and hospital sitesin [place], [place], [place] and [place]. This disclosure is being madepursuant to the Care Everywhere program and may not contain all information available regarding this patient. Last updated 18.[facility] [employer] Allergies No known active allergies Immunizations Name Administration Dates Next Due TDAP (7yrs+) 11/14/2017 Social History Tobacco Use Types Packs/Day Years Used Date Smoking Tobacco: Never Assessed Sex and Gender Information Value Date Recorded Sex Assigned at Not on file Gender Identity Not on file Sexual Orientation Not on file Plan of Treatment Not on file Care Teams Drop Board Man Relationship Specialty Start Date End Date Antoni Anaya MD [address] [place] [address] PCP - General Family Medicine 11/14/17
[2024-11-22 14:40] LABS: Basophils Absolute Auto 0.1 K/mm3 (0.0-0.1); Basophils Percent Auto 0.9 % (0.2-1.2); Eosinophils Absolute Auto 0.2 K/mm3 (0-0.3); Eosinophils Percent Auto 3.2 % (0-4.4); Hematocrit 43.4 % (37.0-47.0); Hemoglobin 13.8 g/dL (12.0-15.0); Immature Granulocyte Absolute 0.05 K/mm3 (0.00-0.031); Immature Granulocyte Percent A 0.8 % (0-0.5); Lymphocytes Absolute Auto 1.86 K/mm3 (0.9-3.2); Lymphocytes Percent Auto 28.7 % (18.3-44.2); Mean Corpuscular HGB Conc 31.8 g/dl (32-36); Mean Corpuscular Hemoglobin 30.3 pg (26-34); Mean Corpuscular Volume 95.2 fl (80-100); Mean Platelet Volume 10.4 fl (7.4-10.4); Monocytes Absolute Auto 0.5 K/mm3 (0.1-0.6); Monocytes Percent Auto 8.2 % (2.6-8.5); Neutrophils Absolute Auto 3.8 K/mm3 (1.3-6.7); Neutrophils Percent Auto 58.2 % (45.5-73.1); Platelet Count Result 210 k/mm3 (150-375); Red Blood Count 4.56 M/mm3 (4.2-5.4); Red Cell Distribution Width 13.1 % (11.5-14.5); White Blood Count 6.5 K/mm3 (4.5-10.0)
[2024-11-22 15:02] LABS: Alanine Aminotransferase 21 U/L (6-35); Albumin Level 4.2 g/dL (3.5-5.1); Alkaline Phosphatase 67 U/L (38-126); Anion Gap 8 mmol/L (4-12); Aspartate Amino Transferase 23 U/L (14-36); Bilirubin,Total 0.5 mg/dL (0.2-1.3); Blood Urea Nitrogen 27 mg/dL (7-17); Calcium 9.4 mg/dL (8.4-10.2); Carbon Dioxide 23 mmol/L (22-30); Chloride 107 mmol/L (98-107); Cholesterol 174 mg/dL (0-200); Estimated Glomerular Filt Rate 47; Glucose 98 mg/dL (65-110); HDL Direct 49 mg/dL; Potassium 5.2 mmol/L (3.4-5.0); Sodium 138 mmol/L (137-145); Triglycerides 92 mg/dL (<150)
[2024-11-22 15:04] LABS: Hemoglobin A1C 5.3 % (<5.7)
[2024-11-22 15:12] LABS: Vitamin D 25 Hydroxy 67.6 ng/mL
[2024-11-22 15:13] LABS: LDL Cholesterol Direct 95 mg/dL
[2024-11-22 17:17] LABS: Free T4 Free Thyroxine Reflex 0.74 ng/dL (0.78-2.19)
== END 2024-11-22 13:46 | disposition home or self-care (01) ==
PROVIDERS: PCP Nurse Practitioner Family; Referring Provider Family Medicine
DX: I12.9 Hypertensive chronic kidney disease with stage 1 through stage 4 chronic kidney disease, or unspecified chronic kidney disease (principal); N18.2 Chronic kidney disease, stage 2 (mild); E53.8 Deficiency of other specified B group vitamins; E78.5 Hyperlipidemia, unspecified; F41.9 Anxiety disorder, unspecified; E55.9 Vitamin D deficiency, unspecified; R73.9 Hyperglycemia, unspecified; Z13.220 Encounter for screening for lipoid disorders
CPT/HCPCS: 36415; 80053; 80061; 82306; 82607; 83036; 84439; 84443; 85025

== ENCOUNTER 2025-01-27 12:42 | Outpatient (CLI) | payer OTHER, SELFPAY ==
--- OUTSIDE RECORDS SUMMARY | 2025-01-27 12:46 | XMS_ITS | Clinical Summary ---
Author Organization [facility] Address [address] [facility] Attn: Epic Prelude ADT [place]BREONNA [place] [address] Care Team Providers Care Tree Driller Name Role Phone Unavailable Primary Care Provider Unavailabl e Social History Tobacco Use Types Packs/Day Years Used Date Smoking Tobacco: Never Assessed Comments Unknown Sex and Gender Information Value Date Recorded Sex Assigned at Not on file Legal Sex Female 3:19 AM SOIL TECHNICIAN Gender Identity Not on file Sexual Orientation Not on file Plan of Treatment Health Maintenance Due Date Last Done Comments DTAP/TDAP/TD VACCINES (1 - Tdap) 2001 HEPATITIS B VACCINES (1 of 3 - 19+ 3-dose series) 2001 HPV/Cotest (21-29) 2003 CERVICAL CANCER SCREENING 2012 HPV/Cotest (30-65) 2012 PAP SMEAR 2012 BREAST CANCER SCREENING 2022 INFLUENZA VACCINE (#1) 2024 HPV VACCINES Aged Out No longer eligi ble based on patient's age to complete this topic
--- OUTSIDE RECORDS SUMMARY | 2025-01-27 12:46 | XMS_ITS | Clinical Summary ---
Author Organization [facility] Address [address] [facility] [address] [place] [address] Phone Care Team Providers Care Carpenter Foreman Name Role Phone Alta Garza NP Primary Care Provider [phone] Allergies Active Allergy Reactions Criticality Noted Date Comments Minocycline Dystonia High 12/27/2021 Medications escitalopram (LEXAPRO) 5 mg tablet Take 1 tablet (5 mg total) by mouth daily Active fexofenadine (Lorelei Allergy) 60 mg tablet Take 1 tablet twice a day by oral route. Active guaiFENesin ER (Mucinex) 600 mg 12 hr tablet Take 1 tablet every 12 hours by oral route. Active chlorthalidone (HYGROTON) 25 mg tablet Take 1 tablet (25 mg total) by mouth daily 30 tablet 11 06/11/2024 Active metoprolol XL (TOPROL-XL) 50 mg extended release tablet Take 3 tablets (150 mg total) by mouth daily 270 tablet 1 08/30/2024 5 Active norethindrone (Incassia) 0.35 mg tablet Take 1 tablet (0.35 mg total) by mouth daily Active lisinopriL (PRINIVIL,ZESTR IL) 20 mg tablet Take 1 tablet (20 mg total) by mouth daily 30 tablet 11 12/19/2024 6 Active Active Problems Problem Noted Date Diagnosed Date Varicose veins of both lower extremities 025 Assessment & Plan (01/17/2025 11:20 AM CDT): Symptomatic bulky varicosities noted to both lower extremities mainly to both calves. Discussed steps leading up to potential procedures once the patient returns with a venous reflux. Answered all questions to the patient and mother's satisfaction. Going forward if patient is agreeable and is a candidate for any procedure she may not be able to tolerate a procedure in the office under local anesthesia. Would recommend procedure in the OR. Chronic kidney disease, stage 3a 12/29/2024 Hyperkalemia 12/29/2024 Secondary hyperparathyroidism of renal origin Stage 2 chronic kidney disease 02/14/2024 Hypertension, essential 02/14/2024 Encounters Date Type Department Care Team Description 01/15/2025 9:45 AM CDT Office Visit [facility] Vascular at [address] [place] [address] Rosalina Ricardo NP Hypertension, essential (Primary Dx); Asymptomatic varicose veins; Varicose veins of both lower extremities with pain 01/15/2025 Orders Only [facility] Vascular at [address] [place] [phone] Heraclio Benson MD Varicose veins of lower extremity with pain, bilateral (Primary Dx) 11/27/2024 4:00 PM CDT Office Visit [facility] Nephrology [address] [place] [address] Advanced Medicine 5th [place] [address] [place] [address] Gia Haile MD Chronic kidney disease, stage 3a (HCC) (Primary Dx); Hypertension, essential; Hyperkalemia 11/22/[address] [facility] Scanning, Provider from Last 3 Months Social History Tobacco Use Types Packs/Day Years Used Date Smoking Tobacco: Never Smokeless Tobacco: Never Tobacco Cessation:Counseling Given: Not Answered Comments Unknown Sex and Gender Information Value Date Recorded Sex Assigned at Not on file Legal Sex Female 8:44 PM SPORTS UMPIRE Gender Identity Not on file Sexual Orientation Not on file Obstetrics History Last Filed Vital Signs Vital Sign Reading Time Taken Comments Blood Pressure 133/90 01/15/2025 10:12 AM CDT Pulse 49 01/15/2025 10:12 AM CDT Temperature 36.6 C (97.8 F) 11/27/2024 3:52 PM CDT Respiratory Rate - - Oxygen Saturation 99% 01/15/2025 10:12 AM CDT Inhaled Oxygen Concentration - - Weight 76.2 kg (168 lb) 01/15/2025 10:12 AM CDT Height 165.1 cm (5' 5 ) 01/15/2025 10:12 AM CDT Body Mass Index 27.96 01/15/2025 10:12 AM CDT Plan of Treatment Health Maintenance Due Date Last Done Comments Breast Cancer Screening-Mammogram 1982 Cervical Cancer Screening 1982 Depression Screening 1982 Hepatitis C Screening 1982 Varicella Vaccines (1 of 2 - 13+ 2-dose series) 1995 Hepatitis B Screening 2000 Regular Well Visit/Exam 18-64 2000 Covid-19 Vaccine ( season) 2024 07/11/2023, 06/18/2021, 11/22/2020, Additional history exists Influenza Vaccine (Season Ended) 2025 07/11/2023, 06/18/2021, 11/30/2017 DTaP/Tdap/Td Vaccine (2 - Td or Tdap) 11/14/2027 11/14/2017 HPV Vaccines Aged Out No longer eligi ble based on patient's age to complete this topic Pneumococcal vaccine <65 Aged Out No longer eligible based on patient's age to complete this topic Procedures Procedure Name Priority Date/Time Associated Diagnosis Comments SCAN - LABS 11/22/2024 from Last 3 Months Results * SCAN - LABS (11/22/2024) us Provider Scanning Edited Result - Final from Last 3 Months Insurance MEDICARE [facility] Care Teams Carpenter Foreman Relationship Specialty Start Date End Date Alta Garza NP [address] [place] [address] PCP - General Family Medicine 10/22/24
--- OUTSIDE RECORDS SUMMARY | 2025-01-27 12:46 | XMS_ITS | Encounter Summary ---
Author Organization [facility] Address [address] [place] [address] Care Team Providers Care Monument Letterer Name Role Phone Unavailable Primary Care Provider [...] on file Legal Sex Female 3:19 AM WELL SERVICES OPERATOR Gender Identity Not on file Sexual Orientation Not on file documented as of this encounter Plan of Treatment Not on file documented as of this encounter Visit Diagnoses Not on filedocumented in this encounter
--- OUTSIDE RECORDS SUMMARY | 2025-01-27 12:47 | XMS_ITS | Encounter Summary ---
Author Organization [facility] Address [address] [place] [address] Phone Care Team Providers Care Security Representative Name Role Phone Unknown, Notinfile Primary Care Provider Unavail able Alta Garza CURBING STONECUTTER Primary Care Provider [phone] Encounter Details Date Type Department Care Team (Latest Contact Info) Description 02/16/2024 Orders Only [facility] Scanning, Provider Social History Tobacco Use Types Packs/Day Years Used Date Smoking Tobacco: Never Assessed Comments Unknown Sex and Gender Information Value Date Recorded Sex Assigned at Not on file Legal Sex Female 8:44 PM COMPONENTS ENGINEER Gender Identity Not on file Sexual Orientation [...] on filedocumented in this encounter Care Teams Security Representative Relationship Specialty Start Date End Date Unknown, Malini PCP - General 05/16/23 10/21/24 Alta Garza, CURBING STONECUTTER [address] [place] [address] PCP - General Family Medicine 10/22/24 documented as of this encounter
--- OUTSIDE RECORDS SUMMARY | 2025-01-27 12:47 | XMS_ITS | Encounter Summary ---
Author Organization [facility] Address [address] [place] [address] Care Team Providers Care Subassembly Supervisor Name Role Phone Unavailable Primary Care Provider [...] on file Legal Sex Female 3:19 AM ROLLWAY WORKER Gender Identity Not on file Sexual Orientation Not on file documented as of this encounter Plan of Treatment Not on file documented as of this encounter Visit Diagnoses Not on filedocumented in this encounter
--- OUTSIDE RECORDS SUMMARY | 2025-01-27 12:47 | XMS_ITS | Clinical Summary ---
Author Organization [facility] Address [address] [address] Care Team Providers Care Venetian Blind Cleaner Name Role Phone Unavailable Primary Care Provider Unavailabl e Allergies Active Allergy Reactions Criticality Noted Date Comments Minocycline 12/27/2021 Medications metoprolol succinate XL (TOPROL XL) 25 MG 24 hr tablet TAKE 1 TABLET BY MOUTH TWICE A DAY TAKE WITH 1/2 GA725WN TO EQUAL 75MG TWICE A DAY 180 [...] Maintenance Due Date Last Done Comments Hepatitis B Vaccine (1 of 3 - 19+ 3-dose series) 06/28 Pneumococcal Vaccine: Peds ( 0 to 5 Years) and At-Risk Patients (6 to 49 Years) (1 of 2 - PCV) 2001 Influenza Vaccine (Season Ended) 2025 Insurance Medicare Medicaid [place]
--- OUTSIDE RECORDS SUMMARY | 2025-01-27 12:47 | XMS_ITS | Encounter Summary ---
Author Organization [facility] Address [address] [place] [address] Phone Care Team Providers Care Continuous Absorption Process Operator Name Role Phone Unknown, Notinfsaniya Primary Care Provider Unavail able Alta Garza APPLIED EXERCISE PHYSIOLOGIST Primary Care Provider Encounter Details Date Type Department Care Team (Latest Contact Info) Description 02/19/2024 Orders Only [facility] Scanning, Provider Social History Tobacco Use Types Packs/Day Years Used Date Smoking Tobacco: Never Assessed Comments Unknown Sex and Gender Information Value Date Recorded Sex Assigned at Not on file Legal Sex Female 8:44 PM HUMAN RESOURCES SPECIALIST Gender Identity Not on file Sexual Orientation [...] on filedocumented in this encounter Care Teams Continuous Absorption Process Operator Relationship Specialty Start Date End Date Unknown, Malini PCP - General 05/16/23 10/21/24 Alta Garza, APPLIED EXERCISE PHYSIOLOGIST [address] [place] [address] PCP - General Family Medicine 10/22/24 documented as of this encounter
--- OUTSIDE RECORDS SUMMARY | 2025-01-27 12:47 | XMS_ITS | Referral Summary ---
Author Organization [facility] Address [address] [facility] [address] [place] [address] Phone Care Team Providers Care Patternmaker Plaster Name Role Phone Alta Garza NP Primary Care Provider [phone] Encounters Date Type Department Care Team Description 01/15/2025 Orders Only [facility] Medical Group Vascular at [address] [place] [address] Heraclio Benson MD Varicose veins of lower extremity with pain, bilateral (Primary Dx) 01/15/2025 9:45 AM CDT Office Visit [facility] Medical [facility] Vascular at [address] [place] [address] Rosalina Ricardo NP Hypertension, essential (Primary Dx); Asymptomatic varicose veins; Varicose veins of both lower extremities with pain 11/27/2024 4:00 PM CDT Office Visit [facility] Nephrology [address] [place] [address] Advanced Medicine 5th [place] [address] [place] [address] Gia Haile MD Chronic kidney disease, stage 3a (HCC) (Primary Dx); Hypertension, essential; Hyperkalemia 11/22/2024 Orders Only [facility] Scanning, Provider from Last 3 Months Allergies Active Allergy Reactions Criticality Noted Date [...] on file Legal Sex Female 8:44 PM PARKING ANALYST Gender Identity Not on file Sexual Orientation [...] 01/15/2025 10:12 AM CDT Plan of Treatment Not on file Procedures Procedure Name Priority Date/Time Associated Diagnosis Comments SCAN - LABS 11/22/2024 from Last 3 Months Results * SCAN - LABS (11/22/2024) us Provider Scanning Edited Result - Final from Last [address] [facility] [place] Care Teams Patternmaker Plaster Relationship Specialty Start Date End Date Alta Garza NP [address] [place] [address] PCP - General Family Medicine 10/22/24
--- OUTSIDE RECORDS SUMMARY | 2025-01-27 12:47 | XMS_ITS ---
Author Organization [facility] Address [address] [place] [address] Phone Care Team Providers Care Rehabilitation Teacher Name Role Phone Alta Garza APRN, CNP Primary Care Provider + [facility] Status:Enrolled (Active) Start date:12/05/2024 Enrollment date:12/05/2024 Related social drivers of health:Intimate Partner Violence, Social Connections, Alcohol Use, Financial Resource Strain, Depression, Stress, Physical Activity, Food Insecurity, Transportation Needs, Housing Stability, Utilities Continued Care and Services Coordination
--- OUTSIDE RECORDS SUMMARY | 2025-01-27 12:47 | XMS_ITS | Clinical Summary ---
Author Organization [facility] Address [address] [place] [address] Phone Care Team Providers Care Care Services Manager Name Role Phone Alta Garza APRN, CNP Primary Care Provider + Medications escitalopram (Lexapro) 10 MG Tablet Take 10 mg by mouth daily. Active hydrOXYzine (ATARAX) 25 MG Tablet Take 25 mg by mouth if needed. Active Active Problems Problem Noted Date Diagnosed Date TAMELA (generalized anxiety disorder) 10/02/2024 Encounters Date Type Department Care Team Description 11/11/2024 10:30 AM FORENSIC INVESTIGATOR [facility]medicine [facility] [address] [place] [address] Maxine Santos, [facility] Discharge Disposition: Discharged to home or Selfcare 11/11/2024 Travel from Last 3 Months Family History [...] on file Legal Sex Female 2:26 PM FORENSIC INVESTIGATOR Gender Identity Not on file Sexual Orientation [...] Patient-Stated? Author ANXIETY Anxiety Improving( 2:25 PM FORENSIC INVESTIGATOR) Yes Maxine Santos, [facility] Note: Process past trauma Goal/Objective: Decrease anxiety and trauma symptoms. Anticipated Time Frame for Goal Completion: 6 months Goal Reviewed with: patient Readiness to change: Ready to change Department associated with goal: [facility] Steps to achieve goal: [...] cope with anxiety and depression. Insurance MEDICAID [place] MEDICARE Care Teams Care Services Manager Relationship Specialty Start Date End Date Alta Garza APRN, ACCESS CONSULTANT [address] [facility] [place] [address] PCP - General Certified Nurse Practitioner 09/20/24
--- OUTSIDE RECORDS SUMMARY | 2025-01-27 12:47 | XMS_ITS | Clinical Summary ---
Author Organization [facility] Address [address] [place] [address] Care Team Providers Care Parole Officer Name Role Phone Antoni Anaya MD Primary Care Provider [phone] Source Comments [facility],non-owned Affiliates and Associated Physician Practices is amultiple site organization consisting of ambulatory clinics and hospital sitesin [place], [place], [place] and [place]. This disclosure is being madepursuant to the Care Everywhere program and may not contain all information available regarding this patient. Last updated 18.[facility] Allergies No known active allergies Immunizations Immunization Administration Dates Next Due TDAP (7yrs+) 11/14/2017 Social History Tobacco Use Types Packs/Day Years Used Date Smoking Tobacco: Never Assessed Comments Unknown Sex and Gender Information Value Date Recorded Sex Assigned at Not on file Legal Sex Female 5:34 AM CLAY MIXER Gender Identity Not on file Sexual Orientation Not on file Plan of Treatment Health Maintenance Due Date Last Done Comments LIPID TESTING 1982 MAMMOGRAM 1982 HIV SCREENING 1997 HEPATITIS C SCREENING 06/23/2000 HEPATITIS B VACCINE (1 of 3 - 19+ 3-dose series) 2001 COVID-19 VACCINE ( - 2023-2 5 season) 2024 DEPRESSION SCREENING 09/18/2024 INFLUENZA VACCINE (Season Ended) 2025 DTAP/TDAP/TD VACCINES (2 - T d or Tdap) 11/14/2027 11/14/2017 ZOSTER VACCINE (1 of 2) 2032 HIB VACCINE Aged Out No longer eligi ble based on patient's age to complete this topic HPV VACCINE Aged Out No longer eligi ble based on patient's age to complete this topic MENINGOCOCCAL (Group B) VACC INE SHARED DECISION-MAKING Aged Out No longer eligibl e based on patient's age to complete this topic MENINGOCOCCAL GROUPS A/C/Y/W VACCINE Aged Out No longer eligible b ased on patient's age to complete this topic PNEUMOCOCCAL VACCINE Aged Out No long er eligible based on patient's age to complete this topic Insurance MEDICARE Care Teams Parole Officer Relationship Specialty Start Date End Date Antoni Anaya MD [address] [place] [address] PCP - General Family Medicine 11/14/17
[2025-01-27 13:23] LABS: Basophils Absolute Auto 0.1 K/mm3 (0.0-0.1); Basophils Percent Auto 0.9 % (0.2-1.2); Eosinophils Absolute Auto 0.2 K/mm3 (0-0.3); Eosinophils Percent Auto 3.1 % (0-4.4); Hematocrit 43.8 % (37.0-47.0); Hemoglobin 13.6 g/dL (12.0-15.0); Immature Granulocyte Absolute 0.05 K/mm3 (0.00-0.031); Immature Granulocyte Percent A 0.7 % (0-0.5); Lymphocytes Absolute Auto 1.75 K/mm3 (0.9-3.2); Mean Corpuscular HGB Conc 31.1 g/dl (32-36); Mean Corpuscular Hemoglobin 29.9 pg (26-34); Mean Corpuscular Volume 96.3 fl (80-100); Mean Platelet Volume 10.5 fl (7.4-10.4); Monocytes Absolute Auto 0.5 K/mm3 (0.1-0.6); Neutrophils Absolute Auto 4.1 K/mm3 (1.3-6.7); Neutrophils Percent Auto 61.3 % (45.5-73.1); Platelet Count Result 222 k/mm3 (150-375); Red Blood Count 4.55 M/mm3 (4.2-5.4); Red Cell Distribution Width 12.1 % (11.5-14.5); White Blood Count 6.7 K/mm3 (4.5-10.0)
[2025-01-27 13:33] LABS: Alanine Aminotransferase 23 U/L (6-35); Albumin Level 4.2 g/dL (3.5-5.1); Alkaline Phosphatase 73 U/L (38-126); Anion Gap 8 mmol/L (4-12); Aspartate Amino Transferase 28 U/L (14-36); Bilirubin,Total 0.2 mg/dL (0.2-1.3); Blood Urea Nitrogen 24 mg/dL (7-17); Calcium 9.1 mg/dL (8.4-10.2); Carbon Dioxide 25 mmol/L (22-30); Chloride 108 mmol/L (98-107); Estimated Glomerular Filt Rate 41; Glucose 95 mg/dL (65-110); Potassium 4.8 mmol/L (3.4-5.0); Sodium 141 mmol/L (137-145)
[2025-01-27 14:33] LABS: Free T4 Free Thyroxine 0.85 ng/dL (0.78-2.19)
== END 2025-01-27 12:43 | disposition home or self-care (01) ==
LOC: ANHLAB 12:43
PROVIDERS: PCP Nurse Practitioner Family; Visit Provider Nurse Practitioner Family
DX: E07.9 Disorder of thyroid, unspecified (principal); E03.9 Hypothyroidism, unspecified; I10 Essential (primary) hypertension
CPT/HCPCS: 36415; 80053; 83519; 84439; 84443; 84481; 85025

== ENCOUNTER 2025-02-04 15:57 | Outpatient (NON) | payer OTHER, SELFPAY ==
--- OUTSIDE RECORDS SUMMARY | 2025-02-04 16:02 | XMS_ITS | Clinical Summary ---
Author Organization [facility] Address [address] [facility] Attn: Epic Prelude ADT ERWINBREONNA FITZPATRICKBONNIE MULLINS [address] Care Team Providers Care Hair Clipper Power Name Role Phone Unavailable Primary Care Provider Unavailabl e Social History Tobacco Use Types Packs/Day Years Used Date Smoking Tobacco: Never Assessed Comments Unknown Sex and Gender Information Value Date Recorded Sex Assigned at Not on file Legal Sex Female 3:19 AM LOT TECHNICIAN Gender Identity Not on file Sexual [...]
--- OUTSIDE RECORDS SUMMARY | 2025-02-04 16:02 | XMS_ITS | Clinical Summary ---
Author Organization [facility] Address [address] [place] [address] Care Team Providers Care Computer Programmer Name Role Phone Antoni Anaya MD Primary Care Provider [phone] Source Comments [facility],non-owned Affiliates and Associated Physician Practices is amultiple site organization consisting of ambulatory clinics and hospital sitesin [place], [place], [place] and [place]. This disclosure is being madepursuant to the Care Everywhere program and may not contain all information available regarding this patient. Last updated 18.[facility] Allergies No known active allergies Immunizations Immunization Administration Dates Next Due TDAP (7yrs+) 11/14/2017 Social History Tobacco Use Types Packs/Day Years Used Date Smoking Tobacco: Never Assessed Comments Unknown Sex and Gender Information Value Date Recorded Sex Assigned at Not on file Legal Sex Female 5:34 AM MANAGER SECURITY AND SAFETY Gender Identity Not on file Sexual Orientation Not on file Plan of Treatment Health Maintenance Due Date Last Done Comments LIPID TESTING 1982 MAMMOGRAM 1982 MEDICARE AWV 12 MONTHS 1982 PAP SMEAR 1982 HIV SCREENING 1997 HEPATITIS C SCREENING 06/23/2000 HEPATITIS B VACCINE (1 of 3 - 19+ 3-dose series) 2001 COVID-19 VACCINE (2023-2 5 season) 2024 DEPRESSION SCREENING 09/18/2024 INFLUENZA [...] complete this topic Insurance MEDICARE Care Teams Computer Programmer Relationship Specialty Start Date End Date Antoni Anaya MD [address] [place] [address] PCP - General Family Medicine 11/14/17
--- OUTSIDE RECORDS SUMMARY | 2025-02-04 16:02 | XMS_ITS | Encounter Summary ---
Author Organization [facility] Address [address] [place] [address] Care Team Providers Care Reconnaissance Man Name Role Phone Unavailable Primary Care Provider [...] on file Legal Sex Female 3:19 AM EARLY CHILDHOOD AIDE CLASSROOM Gender Identity Not on file Sexual Orientation Not on file documented as of this encounter Plan of Treatment Not on file documented as of this encounter Visit Diagnoses Not on filedocumented in this encounter
--- OUTSIDE RECORDS SUMMARY | 2025-02-04 16:02 | XMS_ITS | Clinical Summary ---
Author Organization [facility] Address [address] [place] [address] Phone Care Team Providers Care Coater Operator Name Role Phone Alta Garza NP Primary Care Provider [phone] Allergies Active Allergy Reactions Criticality Noted Date [...] Description 01/15/2025 9:45 AM CDT Office Visit [facility] Group Vascular at [address] [place] [address] Rosalina Ricardo NP Hypertension, essential (Primary Dx); Asymptomatic varicose veins; Varicose veins of both lower extremities with pain 01/15/2025 Orders Only [facility] Vascular at [address] [place] [phone] Heraclio Benson MD Varicose veins of lower extremity with pain, bilateral (Primary Dx) 11/27/2024 4:00 PM CDT Office Visit [facility] Nephrology [address] [place] [address] Advanced Medicine 5th [place] [address] [place] [address] Gia Haile MD Chronic kidney disease, stage 3a (HCC) (Primary Dx); Hypertension, essential; Hyperkalemia 11/22/2024 Orders Only [facility] Scanning, Provider from Last 3 Months Social History Tobacco Use Types Packs/Day Years Used Date Smoking Tobacco: Never Smokeless Tobacco: Never Tobacco Cessation:Counseling Given: Not Answered Comments Unknown Sex and Gender Information Value Date Recorded Sex Assigned at Not on file Legal Sex Female 8:44 PM WEBSITE OPTIMIZATION STRATEGIST Gender Identity Not on file Sexual Orientation [...] - Final from Last 3 Months Insurance [employer] [facility] Care Teams Coater Operator Relationship Specialty Start Date End Date Alta Garza NP [address] [place] [address] PCP - General Family Medicine 10/22/24
--- OUTSIDE RECORDS SUMMARY | 2025-02-04 16:02 | XMS_ITS | Referral Summary ---
Author Organization [facility] Address [address] [place] [address] Phone Care Team Providers Care Water Pump Assembler Name Role Phone Alta Garza NP Primary Care Provider [phone] Encounters Date Type Department Care Team Description 01/15/2025 Orders Only [facility] Medical Group Vascular at [address] [place] [address] Heraclio Benson MD Varicose veins of lower extremity with pain, bilateral (Primary Dx) 01/15/2025 9:45 AM CDT Office Visit [facility] Medical [facility] Vascular at [address] [place] [address] Rosalina Ricardo NP Hypertension, essential (Primary Dx); Asymptomatic varicose veins; Varicose veins of both lower extremities with pain 11/27/2024 4:00 PM CDT Office Visit [facility] Nephrology [address] [place] [address] Advanced Medicine 5th [place] [address] [place] [address] Gia Haile MD Chronic kidney disease, stage [...] on file Legal Sex Female 8:44 PM DONOR RELATIONS MANAGER Gender Identity Not on file Sexual Orientation [...] - Final from Last 3 Months Insurance [facility] Care Teams Water Pump Assembler Relationship Specialty Start Date End Date Alta Garza NP [address] [place] [address] PCP - General Family Medicine 10/22/24
--- OUTSIDE RECORDS SUMMARY | 2025-02-04 16:02 | XMS_ITS | Clinical Summary ---
Author Organization [facility] Address [address] [place] [address] Phone Care Team Providers Care Inspector Exhaust Emissions Name Role Phone Alta Garza APRN, CNP Primary Care Provider + Medications escitalopram (Lexapro) 10 MG Tablet Take 10 mg by mouth daily. Active hydrOXYzine (ATARAX) 25 MG Tablet Take 25 mg by mouth if needed. Active Active Problems Problem Noted Date Diagnosed Date TAMELA (generalized anxiety disorder) 10/02/2024 Encounters Date Type Department Care Team Description 11/11/2024 10:30 AM HANDMADE TILE ARTIST [facility] [address] [place] [address] Maxine Santos, [facility] Discharge Disposition: Discharged to home or [...] on file Legal Sex Female 2:26 PM HANDMADE TILE ARTIST Gender Identity Not on file Sexual Orientation [...] Patient-Stated? Author ANXIETY Anxiety Improving( 2:25 PM HANDMADE TILE ARTIST) Yes Maxine Santos, [facility] Note: Process past trauma Goal/Objective: Decrease anxiety and trauma symptoms. Anticipated Time Frame for Goal Completion: 6 months Goal Reviewed with: patient Readiness to change: Ready to change Department associated with goal: [facility] Steps to achieve goal: [...] cope with anxiety and depression. Insurance MEDICAID [place] MEDICARE Care Teams Inspector Exhaust Emissions Relationship Specialty Start Date End Date Alta Garza APRN, COMMERCIAL LOAN COORDINATOR [address] [facility] [place] [address] PCP - General Certified Nurse Practitioner 09/20/24
--- OUTSIDE RECORDS SUMMARY | 2025-02-04 16:02 | XMS_ITS | Clinical Summary ---
Author Organization [facility] Facility Address [address] [address] Care Team Providers Care Nutrition And Dietetics Instructor Name Role Phone Unavailable Primary Care Provider Unavailabl e Allergies Active Allergy Reactions Criticality Noted Date Comments Minocycline 12/27/2021 Medications metoprolol succinate XL (TOPROL XL) 25 MG 24 hr tablet TAKE 1 TABLET BY MOUTH TWICE A DAY TAKE WITH 1/2 [id number] TO EQUAL 75MG TWICE A DAY 180 [...]
--- OUTSIDE RECORDS SUMMARY | 2025-02-04 16:02 | XMS_ITS | Encounter Summary ---
Author Organization [facility] Address [address] [place] [address] Care Team Providers Care Electrotyper Apprentice Name Role Phone Unavailable Primary Care Provider [...] on file Legal Sex Female 3:19 AM LINE APPLIANCE ASSEMBLER Gender Identity Not on file Sexual Orientation Not on file documented as of this encounter Plan of Treatment Not on file documented as of this encounter Visit Diagnoses Not on filedocumented in this encounter
--- OUTSIDE RECORDS SUMMARY | 2025-02-04 16:02 | XMS_ITS | Encounter Summary ---
Author Organization [facility] Address [address] [place] [address] Phone Care Team Providers Care Salvage Clerk Name Role Phone Unknown, Notinfile Primary Care Provider Unavail able Alta Garza BRICK HANDLER Primary Care Provider [phone] Encounter Details Date Type Department Care Team (Latest Contact Info) Description 02/16/2024 Orders Only [facility] Scanning, Provider Social History Tobacco Use Types Packs/Day Years Used Date Smoking Tobacco: Never Assessed Comments Unknown Sex and Gender Information Value Date Recorded Sex Assigned at Not on file Legal Sex Female 8:44 PM DISTRIBUTION A CLASS LINEMAN Gender Identity Not on file Sexual Orientation [...] on filedocumented in this encounter Care Teams Salvage Clerk Relationship Specialty Start Date End Date Unknown, Malini PCP - General 05/16/23 10/21/24 Alta Garza, BRICK HANDLER [address] [place] [address] PCP - General Family Medicine 10/22/24 documented as of this encounter
--- OUTSIDE RECORDS SUMMARY | 2025-02-04 16:02 | XMS_ITS | Encounter Summary ---
Author Organization [facility] Address [address] [place] [address] Phone Care Team Providers Care Skidder Name Role Phone Unknown, Notinfsaniya Primary Care Provider Unavail able Alta Garza MEDICAL SERVICES MANAGER Primary Care Provider [phone] Encounter Details Date Type Department Care Team (Latest Contact Info) Description 02/19/2024 Orders Only [facility] Scanning, Provider Social History Tobacco Use Types Packs/Day Years Used Date Smoking Tobacco: Never Assessed Comments Unknown Sex and Gender Information Value Date Recorded Sex Assigned at Not on file Legal Sex Female 8:44 PM JET WIPER Gender Identity Not on file Sexual Orientation [...] on filedocumented in this encounter Care Teams Skidder Relationship Specialty Start Date End Date Unknown, Malini PCP - General 05/16/23 10/21/24 Alta Garza, MEDICAL SERVICES MANAGER [address] [place] [address] PCP - General Family Medicine 10/22/24 documented as of this encounter
--- OUTSIDE RECORDS SUMMARY | 2025-02-04 16:02 | XMS_ITS ---
Author Organization [facility] Address [address] [place] [address] Phone Care Team Providers Care Sewer Bricklayer Name Role Phone Alta Garza APRN, CNP Primary Care Provider + [facility] Status:Enrolled (Active) Start date:12/05/2024 Enrollment date:12/05/2024 Related social drivers of health:Intimate Partner Violence, Social Connections, Alcohol Use, Financial Resource Strain, Depression, Stress, Physical Activity, Food Insecurity, Transportation Needs, Housing Stability, Utilities Continued Care and Services Coordination
== END 2025-02-04 15:58 | disposition home or self-care (01) ==
LOC: ANHGOSHLAB 15:58
PROVIDERS: PCP Nurse Practitioner Family; Visit Provider Nurse Practitioner Family
DX: N39.0 Urinary tract infection, site not specified (principal)
CPT/HCPCS: 87086

== ENCOUNTER 2025-03-27 10:19 | Outpatient (CLI) | payer OTHER, SELFPAY ==
--- OUTSIDE RECORDS SUMMARY | 2025-03-27 10:26 | XMS_ITS | Encounter Summary ---
Author Organization [facility] Address [address] [place] [address] Care Team Providers Care Road Boss Name Role Phone Unavailable Primary Care Provider [...] on file Legal Sex Female 3:19 AM PARTNER MARKETING MANAGER Gender Identity Not on file Sexual Orientation Not on file documented as of this encounter Plan of Treatment Not on file documented as of this encounter Visit Diagnoses Not on filedocumented in this encounter
--- OUTSIDE RECORDS SUMMARY | 2025-03-27 10:26 | XMS_ITS | Clinical Summary ---
Author Organization [facility] Address [address] [facility] [address] [place] [address] Phone Care Team Providers Care Summer Associate Name Role Phone Alta Garza NP Primary Care Provider [phone] Allergies Active Allergy Reactions Criticality Noted Date [...] mouth daily 30 tablet 11 06/11/2024 Active norethindrone (Incassia) 0.35 mg tablet Take 1 tablet (0.35 mg total) by mouth daily Active lisinopriL (PRINIVIL,ZESTR IL) 20 mg tablet Take 1 tablet (20 mg total) by mouth daily 30 tablet 11 12/19/2024 Active metoprolol XL (TOPROL-XL) 50 mg extended release tablet TAKE 3 TABLETS BY MOUTH EVERY DAY 270 tablet 2 02/24/2025 Active drospirenone, contraceptive, (Slynd) tablet tablet Take 1 each (4 mg total) by mouth daily Active Active Problems Problem Noted Date Diagnosed Date Varicose veins of left lower extremity with pain 03/24/2025 Varicose veins of right lower extremity with jessica n 03/24/2025 Varicose veins of both lower extremities 05/02/2 025 Assessment & Plan (02/28/2025 10:38 AM CDT): Discussed RFA procedure and phlebectomies to both lower extremities. This will be staged starting with the left lower extremity 1st. I discussed the procedure with the patient and her mother in extensive detail answered all questions their satisfaction. They are agreeable and wished to proceed. They also discussed with Dr. Hussein Benson. This will need to be scheduled in the OR. Assessment & Plan (01/17/2025 11:20 AM CDT): [...] Encounters Date Type Department Care Team Description 03/24/2025 Documentation [facility] Vascular and Vein Surgery [address] [place] [phone] Antonella Bourgeois, RN 03/24/2025 Orders Only [facility] Vascular and Vein Surgery [address] [place] [phone] Hussein Benson MD Varicose veins of both lower extremities with pain (Primary Dx); Varicose veins of left lower extremity with pain; Varicose veins of right lower extremity with pain 02/28/2025 Documentation [facility] Vascular at [address] [place] [phone] Antonella Bourgeois, RN 02/26/2025 8:45 AM CDT Office Visit [facility] Vascular at [address] [place] [phone] Rosalina Ricardo NP Hypertension, essential (Primary Dx); Varicose veins of both lower extremities with inflammation 02/17/2025 8:00 AM CDT Ancillary Procedure [facility] Vascular and Vein Surgery at [address] [place] [address] Varicose veins of lower extremity with pain, bilateral 01/15/2025 9:45 AM CDT Office Visit [facility] Vascular at [address] [place] [phone] Rosalina Ricardo NP Hypertension, essential (Primary Dx); Asymptomatic varicose veins; Varicose veins of both lower extremities with pain 01/15/2025 Orders Only [facility] Vascular at [address] [place] [phone] Hussein Benson MD Varicose veins of lower extremity with pain, bilateral (Primary Dx) from Last 3 Months Social History Tobacco Use Types Packs/Day Years Used Date Smoking Tobacco: Never Smokeless Tobacco: Never Tobacco Cessation:Counseling Given: Not Answered Comments Unknown Sex and Gender Information Value Date Recorded Sex Assigned at Not on file 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 Gender Identity Not on file Sexual Orientation Not on file Obstetrics History Last Filed Vital Signs Vital Sign Reading Time Taken Comments Blood Pressure 105/71 02/26/2025 8:40 AM CDT Pulse 56 02/26/2025 8:40 AM CDT Temperature 36.6 C (97.8 F) 11/27/2024 3:52 PM CDT Respiratory Rate - - Oxygen Saturation 99% 02/26/2025 8:40 AM CDT Inhaled Oxygen Concentration - - Weight 78.5 kg (173 lb) 02/26/2025 8:40 AM CDT Height 165.1 cm (5' 5) 02/26/2025 8:40 AM CDT Body Mass Index 28.79 02/26/2025 8:40 AM CDT Plan of Treatment Upcoming Encounters Date Type Department Care Team (Latest Contact Info) Description 04/24/2025 12:00 PM CDT Hospital Encounter [facility] [place] [address] [place] [phone] Hussein Benson MD [address] [facility] [address] [place] [address] 04/24/2025 12:00 PM CDT - 04/24/2025 2:00 PM CDT Surgery [facility] [place] [address] [place] [phone] Hussein Benson MD [address] [facility] [address] [place] [address] LEFT GREAT SAPHENOUS VEIN RADIO FREQUENCY ABLATION WITH STAB PHLEBECTOMIES 05/29/2025 12:00 PM CDT Hospital Encounter [facility] [place] [address] [place] [phone] Hussein Benson MD [address] [place] [address] [address] [place] [address] 05/29/2025 12:00 PM CDT - 05/29/2025 2:00 PM CDT Surgery [facility] [place] [address] [place] [phone] Hussein Benson MD [facility] [address] [place] [address] RIGHT GREAT SAPHENOUS VEIN RADIO FREQUENCY ABLATION WITH STAB PHLEBECTOMIES Scheduled Procedures Name Priority Associated Diagnoses Date/Ti me LIGATION AND STRIPPING - VEIN Varicose veins of left lower extremity with pain 04/24/2025 12:00 PM CDT LIGATION AND STRIPPING - VEIN Varicose veins of right lower extremity with pain 05/29/2025 12:00 PM CDT Health Maintenance Due Date Last Done Comments Breast Cancer Screening-Mammogram 1982 Cervical Cancer Screening 1982 Depression Screening 1982 Hepatitis C Screening 1982 Varicella Vaccines (1 of 2 - 13+ 2-dose series) 1995 Hepatitis B Screening 2000 Regular Well Visit/Exam 18-64 2000 Covid-19 Vaccine ( season) 2024 07/11/2023, 06/18/2021, 11/22/2020, Additional history exists Influenza Vaccine (#1) 2025 , 06/18/2021, 11/30/2017 DTaP/Tdap/Td Vaccine (2 - Td or Tdap) 11/14/2027 11/14/2017 HPV Vaccines Aged Out No longer eligi ble based on patient's age to complete this topic Pneumococcal vaccine <65 Aged Out No longer eligible based on patient's age to complete this topic Procedures Procedure Name Priority Date/Time Associated Diagnosis Comments US VENOUS REFLUX BILATERAL Routine 02/17/2025 8:48 AM CDT Varicose veins of lower extremity with pain, bilateral from Last 3 Months Results * US Venous Reflux Bilateral (02/17/2025 8:48 AM CDT) Anatomical Region Laterality Modality Vascular Bilateral Ultrasound 02/17/2025 7:53 AM CDT Narrative 02/18/2025 10:19 AM CDT Vascular & Vein Surgery [address] [place] [address] Lower Extremity Venous Reflux Duplex Report Patient Name: KENZIE DUBON : 1980 (44y 7m) Study Date: 02/17/2025 7:53:56 AM Gender: F Knitted Garment Finisher: Location: [facility] Ref Provider: HUSSEIN BENSON Quality: Adequate Order Provider: HUSSEIN BENSON PROCEDURES: Vascular Report: Lower extremity venous valvular insufficiency or reflux evaluation is performed with manual augmentation. Veins evaluated are sapheno-femoral junction, great saphenous, common femoral, femoral, profunda femoral, popliteal, sapheno-popliteal and small saphenous veins bilaterally. Criteria for superficial vein reflux is retrograde blood flow greater than 0.5 seconds in the standing position. INDICATIONS: I83.813 Varicose veins of bilateral lower extremities with pain. HISTORY: HTN. COMPARISONS: No previous exams. MEASUREMENTS: Right Value Left Value Rt Sapheno-Femoral Junction 10.36 mm Lt Sapheno-Femoral Junction 10.12 mm Rt Great Saphenous Thigh - Proximal 8.81 mm Lt Great Saphenous Thigh - Proximal 7.78 mm Rt Great Saphenous Knee 6.39 mm Lt Great Saphenous Knee 6.31 mm Rt Great Saphenous Calf - Proximal 3.93 mm Lt Great Saphenous Calf - Proximal 3.13 mm Rt Sapheno-Popliteal Junction mm Lt Sapheno-Popliteal Junction mm Rt Small Saphenous Proximal 2.54 mm Lt Small Saphenous Proximal 2.73 mm Rt Small Saphenous Mid 3.45 mm Lt Small Saphenous Mid 2.08 mm Rt Anterior Accessory Proximal mm Lt Anterior Accessory Proximal 1.48 mm Rt Anterior Accessory Mid mm Lt Anterior Accessory Mid mm Rt CFV Reflux Time 0.00 sec Lt CFV Reflux Time 0.00 sec Rt SFJ Reflux Time 6.88 sec Lt SFJ Reflux Time 4.57 sec Rt GSV Thigh Reflux Time 5.15 sec Lt GSV Thigh Reflux Time 1.70 sec Rt FV Mid Reflux Time 0.00 sec Lt FV Mid Reflux Time 0.00 sec Rt GSV Knee Reflux Time 7.83 sec Lt GSV Knee Reflux Time 4.97 sec Rt GSV Calf Prx Reflux 1.20 sec Lt GSV Calf Prx Reflux 1.07 sec Rt Popliteal Reflux Time 0.00 sec Lt Popliteal Reflux Time 0.00 sec Rt SSV Prx Reflux 0.00 sec Lt SSV Prx Reflux 0.00 sec Rt SSV Mid Reflux 0.22 sec Lt SSV Mid Reflux 0.00 sec Lt AAGSV Reflux Time 0.00 sec Right Value Left Value FINDINGS: Patient positioning: Reflux testing is performed in steep reverse Trendelenburg position. Right: The common femoral, femoral, popliteal, and calf veins were evaluated with compression maneuvers. No evidence of deep vein thrombus by duplex. No evidence of superficial vein thrombus on the right. On the right venous reflux noted in sapheno-femoral junction, proximal great saphenous vein, great saphenous vein at the knee and great saphenous vein below the knee (or calf). Grove Superintendent vein noted at distal calf measuring 2.5 mm with 0.95 second reflux. Great saphenous becomes superficial at mid thigh with multiple branches at distal thigh and below knee. Left: The common femoral, femoral, popliteal, and calf veins were evaluated with compression maneuvers. No evidence of deep vein thrombus by duplex. No evidence of superficial vein thrombus on the left. On the left venous reflux noted in sapheno-femoral junction, proximal great saphenous vein, great saphenous vein at the knee and great saphenous vein below the knee (or calf). Grove Superintendent vein noted at mid calf measuring 6.2 mm with 0.61 second reflux. Great saphenous vein becomes superficial at mid thigh with multiple branches at distal thigh and below knee. CONCLUSIONS: Right GSV: Hemodynamically significant reflux in the right saphenofemoral junction, great saphenous vein in the thigh, great saphenous vein at the knee and great saphenous vein in the calf. Left GSV: Hemodynamically significant reflux in the left saphenofemoral junction, great saphenous vein in the thigh and great saphenous vein in the calf. Grove Superintendent vein at the distal right calf with reflux. Right great saphenous vein becomes superficial at mid thigh Grove Superintendent vein in the left calf with reflux. Left great saphenous veins becomes superficial at the mid thigh. ATTESTATION: I have reviewed and interpreted the pertinent images and measurements of this study. I attest to the conclusions in the final report that is provided above. Electronically Signed By: Hussein Benson MD 02/18/2025 10:08:11 AM CDT Procedure Note Hussein Benson MD - 02/18/2025 Vascular & Vein Surgery [address] [place] [address] Lower Extremity Venous Reflux Duplex Report Patient Name: KENZIE DUBON : 1980 (44y 7m) Study Date: 02/17/2025 7:53:56 AM Gender: F Knitted Garment Finisher: LEILA Location: [facility] Ref Provider: HUSSEIN BENSON Quality: Adequate Order Provider: HUSSEIN BENSON PROCEDURES: Vascular Report: Lower extremity venous valvular insufficiency or reflux evaluation isperformed with manual augmentation. Veins evaluated are sapheno-femoral junction, great saphenous, commonfemoral, femoral, profunda femoral, popliteal, sapheno-popliteal and small saphenous veinsbilaterally. Criteria for superficial vein reflux is retrograde blood flow greater than0.5 seconds in the standing position. INDICATIONS: I83.813 Varicose veins of bilateral lower extremities with pain. HISTORY: HTN. COMPARISONS: No previous exams. MEASUREMENTS: Right Value Left Value Rt Sapheno-Femoral Junction 10.36 mm Lt Sapheno-Femoral Junction 10.12mm Rt Great Saphenous Thigh - Proximal 8.81 mm Lt Great Saphenous Thigh -Proximal 7.78 mm Rt Great Saphenous Knee 6.39 mm Lt Great Saphenous Knee 6.31 mm Rt Great Saphenous Calf - Proximal 3.93 mm Lt Great Saphenous Calf -Proximal 3.13 mm Rt Sapheno-Popliteal Junction mm Lt Sapheno-Popliteal Junction mm Rt Small Saphenous Proximal 2.54 mm Lt Small Saphenous Proximal 2.73 mm Rt Small Saphenous Mid 3.45 mm Lt Small Saphenous Mid 2.08 mm Rt Anterior Accessory Proximal mm Lt Anterior Accessory Proximal 1.48 mm Rt Anterior Accessory Mid mm Lt Anterior Accessory Mid mm Rt CFV Reflux Time 0.00 sec Lt CFV Reflux Time 0.00 sec Rt SFJ Reflux Time 6.88 sec Lt SFJ Reflux Time 4.57 sec Rt GSV Thigh Reflux Time 5.15 sec Lt GSV Thigh Reflux Time 1.70 sec Rt FV Mid Reflux Time 0.00 sec Lt FV Mid Reflux Time 0.00 sec Rt GSV Knee Reflux Time 7.83 sec Lt GSV Knee Reflux Time 4.97 sec Rt GSV Calf Prx Reflux 1.20 sec Lt GSV Calf Prx Reflux 1.07 sec Rt Popliteal Reflux Time 0.00 sec Lt Popliteal Reflux Time 0.00 sec Rt SSV Prx Reflux 0.00 sec Lt SSV Prx Reflux 0.00 sec Rt SSV Mid Reflux 0.22 sec Lt SSV Mid Reflux 0.00 sec Lt AAGSV Reflux Time 0.00 sec Right Value Left Value FINDINGS: Patient positioning: Reflux testing is performed in steep reverse Trendelenburg position. Right: The common femoral, femoral, popliteal, and calf veins were evaluated withcompression maneuvers. No evidence of deep vein thrombus by duplex. No evidence ofsuperficial vein thrombus on the right. On the right venous reflux noted in sapheno- femoraljunction, proximal great saphenous vein, great saphenous vein at the knee and greatsaphenous vein below the knee (or calf). Grove Superintendent vein noted at distal calf measuring2.5 mm with 0.95 second reflux. Great saphenous becomes superficial at mid thigh withmultiple branches at distal thigh and below knee. Left: The common femoral, femoral, popliteal, and calf veins were evaluated withcompression maneuvers. No evidence of deep vein thrombus by duplex. No evidence ofsuperficial vein thrombus on the left. On the left venous reflux noted in sapheno- femoraljunction, proximal great saphenous vein, great saphenous vein at the knee and greatsaphenous vein below the knee (or calf). Grove Superintendent vein noted at mid calf measuring 6.2mm with 0.61 second reflux. Great saphenous vein becomes superficial at mid thigh withmultiple branches at distal thigh and below knee. CONCLUSIONS: Right GSV: Hemodynamically significant reflux in the right saphenofemoraljunction, great saphenous vein in the thigh, great saphenous vein at the knee and greatsaphenous vein in the calf. Left GSV: Hemodynamically significant reflux in the left saphenofemoraljunction, great saphenous vein in the thigh and great saphenous vein in the calf. Grove Superintendent vein at the distal right calf with reflux. Right great saphenous vein becomes superficial at mid thigh Grove Superintendent vein in the left calf with reflux. Left great saphenous veins becomes superficial at the mid thigh. ATTESTATION: I have reviewed and interpreted the pertinent images and measurements ofthis study. I attest to the conclusions in the final report that is provided above. Electronically Signed By: Hussein Benson MD 02/18/2025 10:08:11 AM CDT Hussein Benson MD [facility] PROCEDURES Final Result from Last 3 Months Insurance [facility] [place] Care Teams Summer Associate Relationship Specialty Start Date End Date Alta Garza NP [address] [place] [address] PCP - General Family Medicine 10/22/24
--- OUTSIDE RECORDS SUMMARY | 2025-03-27 10:26 | XMS_ITS | Clinical Summary ---
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
--- OUTSIDE RECORDS SUMMARY | 2025-03-27 10:26 | XMS_ITS ---
Author Organization [facility] Address [address] [place] [phone] Care Team Providers Care Cloth Bale Header Name Role Phone CRUZDIONNE HAYESICIA Unavailable [phone] Encounters Encounter Location Date Provider Diagnosis [facility] [address] [place] [phone] 12/19/2023 IRVING CRUZ Plan Of Treatment No Information Progress Notes * Alondra DUBON: [birth year] (44 yo F)Acc No.[id number]:12/19/2023 Progress Notes Patient: Rober WALL Alondra Denny Provider: Danielle Cruz MD :1980 A ge:43 Y S ex:Female Date:12/19/2023 Address:[address] [place] [address] Subjective: * Chief Complaints: * * Medical History: Objective: * Vitals: Assessment: Plan: * Treatment: * Billing Information: * Visit Code: * Procedure Codes: * Electronic signature of JESSE CRUZ MD on 03/27/2025 at 10:26 AM CDT Sign off status: Pending * Provider: Danielle Cruz MD Date: 12/19/2023 Generated for Aleyda lam/Hillary/eTransmitting on: 03/27/2025 10:26 AM CDT
--- OUTSIDE RECORDS SUMMARY | 2025-03-27 10:26 | XMS_ITS ---
Author Organization [facility] Address [address] [place] [phone] Care Team Providers Care Doper Name Role Phone CRUZIRVING HAYES Unavailable [phone] Encounters Encounter Location Date Provider Diagnosis [facility] [address] [place] [phone] 10/25/2023 IRVING CRUZ Plan Of Treatment No Information Progress Notes * Alondra DUBON: [birth year] (44 yo F)Acc No.[id number]:10/25/2023 Progress Notes Patient: Rober WALL Alondra Denny Provider: Danielle Cruz MD :1980 A ge:43 Y S ex:Female Date:10/25/2023 Address:[address] [place] [address] Subjective: * Chief Complaints: * * Medical History: Objective: * Vitals: Assessment: Plan: * Treatment: * Billing Information: * Visit Code: * Procedure Codes: * Electronic signature of JESSE CRUZ MD on 03/27/2025 at 10:26 AM CDT Sign off status: Pending * Provider: Danielle Cruz MD Date: 10/25/2023 Generated for Aleyda lam/Hillary/eTransmitting on: 0 03/27/2025 10:26 AM CDT
--- OUTSIDE RECORDS SUMMARY | 2025-03-27 10:27 | XMS_ITS | Clinical Summary ---
Author Organization [facility] Address [address] [address] Care Team Providers Care Insurance Account Specialist Name Role Phone Unavailable Primary Care Provider Unavailabl e Allergies Active Allergy Reactions Criticality Noted Date Comments Minocycline 12/27/2021 Medications metoprolol succinate XL (TOPROL XL) 25 MG 24 hr tablet TAKE 1 TABLET BY MOUTH TWICE A DAY TAKE WITH 1/2 [id number] TO EQUAL 75MG TWICE A DAY 180 [...] of 2 - PCV) 2001 Influenza Vaccine (#1) 2025 Insurance Medicare Medicaid [place]
--- OUTSIDE RECORDS SUMMARY | 2025-03-27 10:27 | XMS_ITS | Encounter Summary ---
Author Organization [facility] Address [address] [place] [address] Care Team Providers Care Calciminer Name Role Phone Alta Garza NP Primary Care Provider Encounter Details Date Type Department Care Team (Late st Contact Info) Description 03/24/2025 Documentation [facility] Vascular and Vein Surgery [address] [place] [address] [place] [phone] Antonella Bourgeois, RN Social History Tobacco Use Types Packs/Day Years Used Date Smoking Tobacco: Never Smokeless Tobacco: Never Comments Unknown Sex and Gender Information Value Date Recorded Sex Assigned at Not on file 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 Per the OV notes, this procedure will need to be scheduled in the OR LLE VV on 04/24/25 at 12p and will need to arrive to OPS at 10am. NPO at midnight. Patient has beenmade aware that ATC will be calling to discuss pre- screening details RLE VV 05/29/25 at 12p and will need to arrive to OPS at 10am. NPO starting at midnight. Patient has been made aware ATC will be callign to discuss pre- screening details Patient is scheduled for addition f/u US and appointments. RN stated Jacqui will receive a phone call this week to discuss procedure packet, appointment date/times. RN verified patient's home address, and email Jacqui stated she understood the instructions and will call the office with any questions or concerns. 03/26/25- RN called and spoke with Jacqui, she stated she will call the office back to discuss packet once she has printed it. Jacqui called the office back and we reviewed the procedure instruction packet. At this time she hadno questions or concerns, documented in this encounter Plan of Treatment Upcoming Encounters Date Type Department Care Team (Latest Contact Info) Description 04/24/2025 12:00 PM CDT Hospital Encounter [facility] OR [address] [place] [address] Heraclio Benson MD [address] [place] [address] 04/24/2025 12:00 PM CDT - 04/24/2025 2:00 PM CDT Surgery [facility] OR [address] [place] [address] Heraclio Benson MD [address] [place] [phone] LEFT GREAT SAPHENOUS VEIN RADIO FREQUENCY ABLATION WITH STAB PHLEBECTOMIES 05/29/2025 12:00 PM CDT Hospital Encounter [facility] OR [address] [place] [address] Heraclio Benson MD [address] [place] [address] 05/29/2025 12:00 PM CDT - 05/29/2025 2:00 PM CDT Surgery [facility] OR [address] [place] [address] Heraclio Benson MD [address] [place] [address] RIGHT GREAT SAPHENOUS VEIN RADIO FREQUENCY ABLATION WITH STAB PHLEBECTOMIES Scheduled Procedures Name Priority Associated Diagnoses Date/Ti me LIGATION AND STRIPPING - VEIN Varicose veins of left lower extremity with pain 04/24/2025 12:00 PM CDT LIGATION AND STRIPPING - VEIN Varicose veins of right lower extremity with pain 05/29/2025 12:00 PM CDT documented as of this encounter Visit Diagnoses Not on filedocumented in this encounter Care Teams Calciminer Relationship Specialty Start Date End Date Alta Garza NP [address] [place] [address] PCP - General Family Medicine 10/22/24 documented as of this encounter
--- OUTSIDE RECORDS SUMMARY | 2025-03-27 10:27 | XMS_ITS | Referral Summary ---
Author Organization [facility] Address [address] [place] [address] Phone Care Team Providers Care Board Filler Name Role Phone Alta Garza NP Primary Care Provider [phone] Encounters Date Type Department Care Team Description 03/24/2025 Documentation [facility] Medical [facility] Vascular and Vein Surgery [address] [place] [phone] Antonella Bourgeois, RN 03/24/2025 Orders Only [facility] Medical [facility] Vascular and Vein Surgery [address] [place] [address] [place] [phone] Hussein Benson MD Varicose veins of both lower extremities with pain (Primary Dx); Varicose veins of left lower extremity with pain; Varicose veins of right lower extremity with pain 02/28/2025 Documentation [facility] Medical Group Vascular at [address] [place] [phone] Atnonella Bourgeois, RN 02/26/2025 8:45 AM CDT Office Visit [facility] Medical Group Vascular at [address] [place] [address] Rosalina Ricardo NP Hypertension, essential (Primary Dx); Varicose veins of both lower extremities with inflammation 02/17/2025 8:00 AM CDT Ancillary Procedure [facility] Medical [facility] Vascular and Vein Surgery at [address] [place] [address] Varicose veins of lower extremity with pain, bilateral 01/15/2025 Orders Only [facility] Medical Group Vascular at [address] [place] [address] Hussein Benson MD Varicose veins of lower extremity with pain, bilateral (Primary Dx) 01/15/2025 9:45 AM CDT Office Visit [facility] Medical Group Vascular at [address] [place] [address] Rosalina Ricardo NP Hypertension, essential (Primary Dx); Asymptomatic varicose veins; Varicose veins of both lower extremities with pain from Last 3 Months Allergies Active Allergy [...] 03/24/2025 Varicose veins of both lower extremities 025 Assessment & Plan (02/28/2025 10:38 AM [...] on file 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 Gender Identity Not on file Sexual Orientation [...] Description 04/24/2025 12:00 PM CDT Hospital Encounter [facility] OR [address] [place] [address] Hussein Benson MD [address] [place] [address] 04/24/2025 12:00 PM CDT - 04/24/2025 2:00 PM CDT Surgery [facility] OR [address] [place] [address] Hussein Benson MD [address] [facility] [address] [place] [address] LEFT GREAT SAPHENOUS VEIN RADIO FREQUENCY ABLATION WITH STAB PHLEBECTOMIES 05/29/2025 12:00 PM CDT Hospital Encounter [facility] OR [address] [place] [address] Hussein Benson MD [address] [place] [address] [address] [place] [address] 05/29/2025 12:00 PM CDT - 05/29/2025 2:00 PM CDT Surgery [facility] OR [address] [place] [address] Hussein Benson MD [address] [place] [address] [address] [place] [address] RIGHT GREAT SAPHENOUS VEIN RADIO FREQUENCY ABLATION WITH STAB PHLEBECTOMIES Scheduled Procedures Name Priority Associated Diagnoses Date/Ti me LIGATION AND STRIPPING - VEIN Varicose veins of left lower extremity with pain 04/24/2025 12:00 PM CDT LIGATION AND STRIPPING - VEIN Varicose veins of right lower extremity with pain 05/29/2025 12:00 PM CDT Procedures Procedure Name Priority Date/Time Associated Diagnosis Comments US VENOUS REFLUX BILATERAL Routine 02/17/2025 8:48 AM CDT Varicose veins of lower extremity with pain, bilateral from Last 3 Months Results * US Venous Reflux Bilateral (02/17/2025 8:48 AM CDT) Anatomical Region Laterality Modality Vascular Bilateral Ultrasound 02/17/2025 7:53 AM CDT Narrative 02/18/2025 10:19 AM CDT Vascular & Vein Surgery [address] [place] [address] Lower Extremity Venous Reflux Duplex Report Patient Name: KENZIE DUBON : 1980 (44y 7m) Study Date: 02/17/2025 7:53:56 AM Gender: F Broadcast Operations Director: LEILA Location: [facility] Ref Provider: HUSSEIN BENSON [...] saphenous vein below the knee (or calf). Die Maintenance vein noted at distal calf measuring 2.5 [...] saphenous vein below the knee (or calf). Die Maintenance vein noted at mid calf measuring 6.2 [...] and great saphenous vein in the calf. Die Maintenance vein at the distal right calf with reflux. Right great saphenous vein becomes superficial at mid thigh Die Maintenance vein in the left calf with reflux. [...] MD - 02/18/2025 Vascular & Vein Surgery [facility] [place] [address] Lower Extremity Venous Reflux Duplex Report Patient Name: KENZIE DUBON : 1980 (44y 7m) Study Date: 02/17/2025 7:53:56 AM Gender: F Broadcast Operations Director: Location: [facility] Provider: HUSSEIN BENSON Quality: Adequate Order Provider: [...] greatsaphenous vein below the knee (or calf). Die Maintenance vein noted at distal calf measuring2.5 mm [...] greatsaphenous vein below the knee (or calf). Die Maintenance vein noted at mid calf measuring 6.2mm [...] and great saphenous vein in the calf. Die Maintenance vein at the distal right calf with reflux. Right great saphenous vein becomes superficial at mid thigh Die Maintenance vein in the left calf with reflux. Left great saphenous veins becomes superficial at the mid thigh. ATTESTATION: I have reviewed and interpreted the pertinent images and measurements ofthis study. I attest to the conclusions in the final report that is provided above. Electronically Signed By: Hussein Benson MD 02/18/2025 10:08:11 AM CDT Hussein Benson MD IM US PROCEDURES Final Result from Last 3 Months Insurance [facility] [place] [facility] Care Teams Board Filler Relationship Specialty Start Date End Date Alta Garza NP [address] [place] [address] PCP - General Family Medicine 10/22/24
--- OUTSIDE RECORDS SUMMARY | 2025-03-27 10:27 | XMS_ITS | Encounter Summary ---
Author Organization [facility] Address 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
--- OUTSIDE RECORDS SUMMARY | 2025-03-27 10:27 | XMS_ITS | Encounter Summary ---
Author Organization [facility] Address [address] [place] [address] Phone Care Team Providers Care Polymerization Oven Tender Name Role Phone Unknown, Notinfile Primary Care Provider Unavail able Alta Garza NP Primary Care Provider [phone] Encounter Details Date Type Department Care Team (Latest Contact Info) Description 02/19/2024 Orders Only [facility] Scanning, Provider Social History Tobacco Use Types Packs/Day Years Used Date Smoking Tobacco: Never Assessed Comments Unknown Sex and Gender Information Value Date Recorded Sex Assigned at Not on file 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 Gender Identity Not on file Sexual Orientation Not on file documented as of this encounter Plan of Treatment Upcoming Encounters Date Type Department Care Team (Latest Contact Info) Description 04/24/2025 12:00 PM CDT Hospital Encounter [facility] OR [address] [place] [address] Heraclio Benson MD [facility] [facility] [address] [place] [address] 04/24/2025 12:00 PM CDT - 04/24/2025 2:00 PM CDT Surgery [facility] OR [address] [place] [address] Heraclio Benson MD [address] [facility] [address] [place] [address] LEFT GREAT SAPHENOUS VEIN RADIO FREQUENCY ABLATION WITH STAB PHLEBECTOMIES 05/29/2025 12:00 PM CDT Hospital Encounter [facility] [place] [address] [place] [address] Heraclio Benson MD [address] [facility] [address] [place] [address] 05/29/2025 12:00 PM CDT - 05/29/2025 2:00 PM CDT Surgery [facility] [place] [address] [place] [address] Heraclio Benson MD [address] [facility] [address] [place] [address] RIGHT GREAT SAPHENOUS VEIN RADIO FREQUENCY ABLATION WITH STAB PHLEBECTOMIES Scheduled Procedures Name Priority Associated Diagnoses Date/Ti me LIGATION AND STRIPPING - VEIN Varicose veins of left lower extremity with pain 04/24/2025 12:00 PM CDT LIGATION AND STRIPPING - VEIN Varicose veins of right lower extremity with pain 05/29/2025 12:00 PM CDT documented as of this encounter Procedures Procedure Name Priority Date/Time Associated Diagnosis Comments SCAN - RADIOLOGY/IMAGING 02/19/2024 documented in this encounter Results * SCAN - RADIOLOGY/IMAGING (02/19/2024) Anatomical Region Laterality Modality Other us Provider Scanning Edited Result - Final documented in this encounter Visit Diagnoses Not on filedocumented in this encounter Care Teams Polymerization Oven Tender Relationship Specialty Start Date End Date Unknown, Notinfile PCP - General 05/16/23 10/21/24 Alta Garza NP [address] [place] [address] PCP - General Family Medicine 10/22/24 documented as of this encounter
--- OUTSIDE RECORDS SUMMARY | 2025-03-27 10:27 | XMS_ITS | Patient Health Record ---
Author Organization [facility] Address [address] [place] [phone] Support Name Relationship Address Phone Alondra Dubon Guarantor Unknown [phone] Reason For Referral No Information Medications Medication SIG (Take, Route, Frequency, Duration) Notes Start Date End Date Status Metoprolol Succinate 25 MG 1 capsule Ora lly TWICE A DAY Active hydrALAZINE HCl 25 MG TAKE 1&1/2 TABLET BY MOUTH IN THE MORNING AND IN THE EVENING Oral; Duration: 90 days Active Lidocaine 5 % as directed EXTERNALLY ONCE A DAY; Duration: 30 days As needed 11/17/2022 Active Metoprolol Succinate ER 100 MG TAKE 1/2 TABLET BY MOUTH TWICE A DAY TAKE WITH 25MG TAB TWICE A DAY TO EQUAL 75MG TWICE A DAY Oral TWICE A DAY; Duration: 90 days Active ALPRAZolam 1 MG 1 tablet Orally Twice a day; Duration: 5 days FOR LAB DRAWS 11/17/2022 Active Problems Problem Type SNOMED Code ICD Code Onset Dates Problem Status W/U Status Risk Notes Problem Hyperkalemia (33351702) Hyperkalemia (E87.5) Active confirmed Problem Chronic kidney disease stage 2 (814800842) Chronic kidney disease, stage 2 (mild) (N18.2) Active confirmed Problem Primary hypertension (I10) Active confirmed Plan Of Treatment Future Test Test Name Order Date Urinalysis, Complete 11/17/2022 CBC With Differential/Platelet 3 Comp. Metabolic Panel (14) 11/17/2022 [id number] 11/17/2022
--- OUTSIDE RECORDS SUMMARY | 2025-03-27 10:27 | XMS_ITS ---
Author Organization [facility] Address [address] [place] [phone] Care Team Providers Care Bin Tripper Operator Name Role Phone CRUZIRVING HAYES Unavailable [phone] Encounters Encounter Location Date Provider Diagnosis [facility] [address] [place] [phone] 11/22/2023 IRVING CRUZ Plan Of Treatment No Information Progress Notes * Alondra DUBON: [birth year] (44 yo F)Acc No.[id number]:11/22/2023 Progress Notes Patient: Rober WALL Alondra eDnny Provider: Danielle Cruz MD :1980 A ge:43 Y S ex:Female Date:11/22/2023 Address:[address] [place] [address] Subjective: * Chief Complaints: * * Medical History: Objective: * Vitals: Assessment: Plan: * Treatment: * Billing Information: * Visit Code: * Procedure Codes: * Electronic signature of JESSE CRUZ MD on 03/27/2025 at 10:26 AM CDT Sign off status: Pending * Provider: Danielle Cruz MD Date: 11/22/2023 Generated for Aleyda lam/Hillary/eTransmitting on: 03/27/2025 10:26 AM CDT
--- OUTSIDE RECORDS SUMMARY | 2025-03-27 10:27 | XMS_ITS ---
Author Organization [facility] Address [address] [place] [address] Phone Care Team Providers Care Director Title Name Role Phone Alta Garza APRN, CNP Primary Care Provider + [facility] Status:Enrolled (Active) Start date:12/05/2024 Enrollment date:12/05/2024 Related social drivers of health:Intimate Partner Violence, Social Connections, Alcohol Use, Financial Resource Strain, Depression, Stress, Physical Activity, Food Insecurity, Transportation Needs, Housing Stability, Utilities Continued Care and Services Coordination
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
--- OUTSIDE RECORDS SUMMARY | 2025-03-27 10:27 | XMS_ITS | Clinical Summary ---
Author Organization [facility] Address [address] [place] [address] Phone Care Team Providers Care General Assistant Name Role Phone Alta Garza APRN, CNP Primary Care Provider + Medications escitalopram (Lexapro) 10 MG Tablet Take 10 mg by mouth daily. Active hydrOXYzine (ATARAX) 25 MG Tablet Take 25 mg by mouth if needed. 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 Gender Identity Not on file Sexual Orientation Not on file Plan of Treatment Health Maintenance Due Date Last Done Comments Hepatitis C Virus (HCV) Screening 1982 Mammogram 1982 Hepatitis B Immunization (1 of 3 - 19+ 3-dose series) 2001 Pap Smear 2003 Cervical Cancer Screening (CCS) 2012 HPV/Cotest 2012 Discussion re Starting/Frequency of Mammograms 2022 SARS-COV-2 Immunization ( season) 2024 07/11/2023, 06/18/2021, 11/22/2020, Additional history exists Influenza Immunization (Season Ended) 2025 07/11/2023, 06/18/2021, 11/30/2017 Respiratory Syncytial Virus (RSV) Immunization (Adult) (1 - 1-dose 75+ series) 2057 TdaP Immunization Completed 11/14/2017 Human Papillomavirus (HPV) Immunization Aged Out No longer eligible based on patient's age to complete this topic Meningococcal Immunization (ACWY) Aged Out No longer [...] Patient-Stated? Author ANXIETY Anxiety Improving( 2:25 PM CABLE FORMER) Yes Maxine Santos, [facility] Note: Process past trauma Goal/Objective: Decrease anxiety and trauma symptoms. Anticipated Time Frame for Goal Completion: 6 months Goal Reviewed with: patient Readiness to change: Ready to change Department associated with goal: [facility] Steps to achieve [...] cope with anxiety and depression. Insurance MEDICAID [place] Care Teams General Assistant Relationship Specialty Start Date End Date Alta Garza APRN, KATHERINE [address] [facility] [place] [address] PCP - General Certified Nurse Practitioner 09/20/24
--- OUTSIDE RECORDS SUMMARY | 2025-03-27 10:27 | XMS_ITS | Clinical Summary ---
Author Organization [facility] Address [address] [facility] [place] [address] Care Team Providers Care Dermatopathologist Name Role Phone Antoni Anaya MD Primary Care Provider [phone] Source Comments [facility],non-owned Affiliates and Associated Physician Practices is amultiple site organization consisting of ambulatory clinics and hospital sitesin [place], [place], [place] and [place]. This disclosure is being madepursuant to the Care Everywhere program and may not contain all information available regarding this patient. 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 Gender Identity Not on file Sexual Orientation Not on file Plan of Treatment Health Maintenance Due Date Last Done Comments LIPID TESTING 1982 MAMMOGRAM 1982 MEDICARE AWV 12 MONTHS 1982 HIV SCREENING 1997 HEPATITIS C SCREENING 06/23/2000 HEPATITIS B VACCINE (1 of 3 - 19+ 3-dose series) 2001 PAP SMEAR 2003 HPV VACCINE (1 - 3-dose SCDM series) 2009 COVID-19 VACCINE (2023-2 5 season) 2024 DEPRESSION SCREENING 09/18/2024 INFLUENZA VACCINE (#1) 2025 DTAP/TDAP/TD VACCINES (2 - T d [...] complete this topic Insurance MEDICARE Care Teams Dermatopathologist Relationship Specialty Start Date End Date Antoni Anaya MD [address] [place] [address] PCP - General Family Medicine 11/14/17
[2025-03-27 11:04] LABS: Anion Gap 9 mmol/L (4-12); Blood Urea Nitrogen 24 mg/dL (7-17); Calcium 9.5 mg/dL (8.4-10.2); Carbon Dioxide 23 mmol/L (22-30); Chloride 103 mmol/L (98-107); Estimated Glomerular Filt Rate 38; Glucose 70 mg/dL (65-110); Potassium 5.1 mmol/L (3.4-5.0); Sodium 135 mmol/L (137-145)
[2025-03-27 11:28] LABS: Free T4 Free Thyroxine 1.07 ng/dL (0.78-2.19)
[2025-03-27 11:40] LABS: Thyroid Stimulating Hormone 4.360 uIU/mL (0.465-4.680); Total Triiodothyronine (T3) 1.09 NG/ML (0.82-1.58)
== END 2025-03-27 10:20 | disposition home or self-care (01) ==
PROVIDERS: PCP Family Medicine; Visit Provider Nurse Practitioner Family
DX: I12.9 Hypertensive chronic kidney disease with stage 1 through stage 4 chronic kidney disease, or unspecified chronic kidney disease (principal); N18.31 Chronic kidney disease, stage 3a; E87.5 Hyperkalemia; E03.9 Hypothyroidism, unspecified
CPT/HCPCS: 36415; 80048; 84439; 84443; 84480